=== PATIENT | female | born 1950 | race Hispanic/Latino ===

== ENCOUNTER 2020-12-05 11:24 | Outpatient (CLI) | payer MEDICARE | END 2020-12-05 11:25 | disposition home or self-care (01) | LOC: CSHWCC 11:24 | PROVIDERS: ATTEND Nurse Practitioner Family | DX: E11.621 Type 2 diabetes mellitus with foot ulcer (principal); L97.522 Non-pressure chronic ulcer of other part of left foot with fat layer exposed; E11.622 Type 2 diabetes mellitus with other skin ulcer; L97.812 Non-pressure chronic ulcer of other part of right lower leg with fat layer exposed; L97.822 Non-pressure chronic ulcer of other part of left lower leg with fat layer exposed; L97.922 Non-pressure chronic ulcer of unspecified part of left lower leg with fat layer exposed; R60.0 Localized edema; E78.2 Mixed hyperlipidemia; I11.0 Hypertensive heart disease with heart failure; I50.9 Heart failure, unspecified; I70.25 Atherosclerosis of native arteries of other extremities with ulceration; I87.2 Venous insufficiency (chronic) (peripheral); L24.9 Irritant contact dermatitis, unspecified cause; M20.42 Other hammer toe(s) (acquired), left foot | CPT/HCPCS: 29581; 99214; G0463 ==

== ENCOUNTER 2020-12-15 10:29 | Outpatient (CLI) | payer MEDICARE | END 2020-12-15 10:30 | disposition home or self-care (01) | LOC: CSHWCC 10:29 | PROVIDERS: ATTEND Nurse Practitioner Family | DX: I87.2 Venous insufficiency (chronic) (peripheral) (principal); E11.621 Type 2 diabetes mellitus with foot ulcer; E11.622 Type 2 diabetes mellitus with other skin ulcer; L97.522 Non-pressure chronic ulcer of other part of left foot with fat layer exposed; L97.812 Non-pressure chronic ulcer of other part of right lower leg with fat layer exposed; L97.822 Non-pressure chronic ulcer of other part of left lower leg with fat layer exposed; R60.0 Localized edema; E78.2 Mixed hyperlipidemia; I11.0 Hypertensive heart disease with heart failure; I50.9 Heart failure, unspecified; E11.69 Type 2 diabetes mellitus with other specified complication; I70.25 Atherosclerosis of native arteries of other extremities with ulceration; L24.9 Irritant contact dermatitis, unspecified cause; M20.42 Other hammer toe(s) (acquired), left foot | CPT/HCPCS: 29581; 99215; G0463 ==

== ENCOUNTER 2021-01-02 10:23 | Outpatient (CLI) | payer MEDICARE | END 2021-01-02 10:24 | disposition home or self-care (01) | LOC: CSHWCC 10:23 | PROVIDERS: ATTEND Nurse Practitioner Family | DX: E11.621 Type 2 diabetes mellitus with foot ulcer (principal); L97.522 Non-pressure chronic ulcer of other part of left foot with fat layer exposed; E11.622 Type 2 diabetes mellitus with other skin ulcer; L97.812 Non-pressure chronic ulcer of other part of right lower leg with fat layer exposed; L97.822 Non-pressure chronic ulcer of other part of left lower leg with fat layer exposed; L97.922 Non-pressure chronic ulcer of unspecified part of left lower leg with fat layer exposed; R60.0 Localized edema; E78.2 Mixed hyperlipidemia; I11.0 Hypertensive heart disease with heart failure; I50.9 Heart failure, unspecified; I70.25 Atherosclerosis of native arteries of other extremities with ulceration; I87.2 Venous insufficiency (chronic) (peripheral); L24.9 Irritant contact dermatitis, unspecified cause; M20.42 Other hammer toe(s) (acquired), left foot | CPT/HCPCS: 29581; 97139; G0463; 99214 ==

== ENCOUNTER 2021-01-16 12:30 | Outpatient (CLI) | payer MEDICARE | END 2021-01-16 12:31 | disposition home or self-care (01) | LOC: CSHWCC 12:30 | PROVIDERS: ATTEND Nurse Practitioner Family | DX: I87.2 Venous insufficiency (chronic) (peripheral) (principal); E11.621 Type 2 diabetes mellitus with foot ulcer; E11.622 Type 2 diabetes mellitus with other skin ulcer; L97.522 Non-pressure chronic ulcer of other part of left foot with fat layer exposed; L97.812 Non-pressure chronic ulcer of other part of right lower leg with fat layer exposed; L97.822 Non-pressure chronic ulcer of other part of left lower leg with fat layer exposed; R60.0 Localized edema; E78.2 Mixed hyperlipidemia; I11.0 Hypertensive heart disease with heart failure; I50.9 Heart failure, unspecified; E11.51 Type 2 diabetes mellitus with diabetic peripheral angiopathy without gangrene; I70.25 Atherosclerosis of native arteries of other extremities with ulceration; L24.9 Irritant contact dermatitis, unspecified cause; M20.42 Other hammer toe(s) (acquired), left foot | CPT/HCPCS: 29581; 97139; G0463; 99214 ==

== ENCOUNTER 2021-02-02 13:23 | Outpatient (CLI) | payer MEDICARE | END 2021-02-02 13:24 | disposition home or self-care (01) | LOC: CSHWCC 13:23 | PROVIDERS: ATTEND Nurse Practitioner Family | DX: I87.2 Venous insufficiency (chronic) (peripheral) (principal); E11.621 Type 2 diabetes mellitus with foot ulcer; E11.622 Type 2 diabetes mellitus with other skin ulcer; L97.522 Non-pressure chronic ulcer of other part of left foot with fat layer exposed; L97.812 Non-pressure chronic ulcer of other part of right lower leg with fat layer exposed; L97.822 Non-pressure chronic ulcer of other part of left lower leg with fat layer exposed; R60.0 Localized edema; E78.2 Mixed hyperlipidemia; I11.0 Hypertensive heart disease with heart failure; I50.9 Heart failure, unspecified; I70.25 Atherosclerosis of native arteries of other extremities with ulceration; E11.51 Type 2 diabetes mellitus with diabetic peripheral angiopathy without gangrene; L24.9 Irritant contact dermatitis, unspecified cause; M20.42 Other hammer toe(s) (acquired), left foot ==

== ENCOUNTER 2021-04-28 08:12 | Outpatient (CLI) | payer MEDICARE | END 2021-04-28 08:13 | disposition home or self-care (01) | LOC: CSHWCC 08:12 | PROVIDERS: ATTEND Nurse Practitioner Family | DX: I87.332 Chronic venous hypertension (idiopathic) with ulcer and inflammation of left lower extremity (principal); I87.2 Venous insufficiency (chronic) (peripheral); E11.621 Type 2 diabetes mellitus with foot ulcer; E11.622 Type 2 diabetes mellitus with other skin ulcer; L97.521 Non-pressure chronic ulcer of other part of left foot limited to breakdown of skin; L97.322 Non-pressure chronic ulcer of left ankle with fat layer exposed; E11.51 Type 2 diabetes mellitus with diabetic peripheral angiopathy without gangrene; E78.2 Mixed hyperlipidemia; I70.25 Atherosclerosis of native arteries of other extremities with ulceration; I11.0 Hypertensive heart disease with heart failure; I50.9 Heart failure, unspecified; L24.9 Irritant contact dermatitis, unspecified cause; L60.1 Onycholysis; M20.42 Other hammer toe(s) (acquired), left foot; R60.0 Localized edema | CPT/HCPCS: 29581; 99213; G0463 ==

== ENCOUNTER 2021-05-12 08:56 | Outpatient (CLI) | payer MEDICARE | END 2021-05-12 08:57 | disposition home or self-care (01) | LOC: CSHWCC 08:56 | PROVIDERS: ATTEND Nurse Practitioner Family | DX: I87.332 Chronic venous hypertension (idiopathic) with ulcer and inflammation of left lower extremity (principal); I87.2 Venous insufficiency (chronic) (peripheral); S91.105D Unspecified open wound of left lesser toe(s) without damage to nail, subsequent encounter; E11.51 Type 2 diabetes mellitus with diabetic peripheral angiopathy without gangrene; E11.622 Type 2 diabetes mellitus with other skin ulcer; I70.25 Atherosclerosis of native arteries of other extremities with ulceration; L97.322 Non-pressure chronic ulcer of left ankle with fat layer exposed; E78.2 Mixed hyperlipidemia; I11.0 Hypertensive heart disease with heart failure; I50.9 Heart failure, unspecified; L24.9 Irritant contact dermatitis, unspecified cause; L60.1 Onycholysis; M20.42 Other hammer toe(s) (acquired), left foot; R60.0 Localized edema | CPT/HCPCS: 29581; 99214; G0463 ==

== ENCOUNTER 2021-09-11 19:09 | Inpatient (IN) | payer MEDICARE ==
[2021-09-11] MEDS ORDERED: Heparin 5,000 UNITS/ML VIAL ONE (19:17)
[2021-09-11] MEDS ORDERED: Nitroglycerin 50 MG/250 ML BOT 0 ML ONE (19:18)
[2021-09-11] MEDS ORDERED: Lidocaine 1% PF 5 ML VIAL ONE (19:18)
[2021-09-11] MEDS ORDERED: Heparin 10,000 UNITS/ 10 ML VIAL ONE (19:18)
[2021-09-11] MEDS ORDERED: Adenosine 6 MG/2 ML VIAL ONE (19:19)
[2021-09-11] MEDS ORDERED: Sodium Chloride 0.9% 0 ML ONE (19:19)
[2021-09-11 19:43] LABS: #Basophils 0.1 10x3/uL (0.0-0.2); #Eosinphils 0.1 10x3/uL (0.0-0.5); #Monocytes 1.3 10x3/uL (0.0-1.1); %Basophils 0.8 % (0.0-2.0); %Eosinophils 0.9 % (0.0-6.0); %Lymphocytes 4.9 % (18.0-47.0); %Neutrophils 78.6 % (40.0-75.0); Hemoglobin 9.5 g/dL (12.0-15.5); Mean Corpuscular HGB CONC 30.5 g/dL (32.0-36.0); Mean Corpuscular Volume 88.4 fl (81.6-98.3); Platelet Count 263 10x3/uL (150-450); RBC Distribution Width 13.9 % (11.5-14.5); Red Blood Cell (RBC) Count 3.52 10x6/uL (3.90-5.03); White Blood Cell (WBC) Count 8.9 10x3/uL (3.5-10.5)
[2021-09-11 19:53] LABS: ALT (SGPT) 11 U/L (8-55); AST (SGOT) 20 U/L (5-34); Albumin 3.9 g/dL (3.4-4.8); Alkaline Phosphatase 102 U/L (40-110); Anion Gap 18 mmol/L (10-20); BUN (Urea Nitrogen) 29 mg/dL (9.8-20.1); Bilirubin, Total 0.3 mg/dL (0.2-1.2); Calc. Creatinine Clearance 0 mL/min (70-130); Calcium 9.1 mg/dL (7.8-10.44); Carbon Dioxide 20 mmol/L (23-31); Chloride 101 mmol/L (98-107); Globulin 4.9 g/dL (2.4-3.5); Glucose 300 mg/dL (80-115); Potassium 4.2 mmol/L (3.5-5.1); Protein, Total 8.8 g/dL (5.8-8.1); Sodium 135 mmol/L (136-145)
[2021-09-11 20:15] LABS: Actual Bicarbonate (HCO3a) 24.8 mEq/L (22-28); Base Excess (BEa) 0.3 mEq/L (-2.0 to +3.0); CO2 Tension 39.4 mmHg (35.0-45.0); Calcium, Ionized (arterial) 1.11 mmol/L (1.12-1.30); Carboxyhemoglobin (COHb) 0.6 gm% (0.0-3.0); Hemoglobin (Hb) 10.3 g/dL (12.0-16.0); O2 Tension (PaO2), arterial 70.4 mmHg (> 80.0); Potassium - ABG Lab 3.9 mmol/L (3.70-5.30); Puncture Site RRA; pH, Arterial 7.42 (7.35-7.45)
[2021-09-11 20:31] LABS: SARS-CoV-2 NAA Rapid Test DETECTED (NotDetected)
[2021-09-11] MEDS ORDERED: Ondansetron PF 4 MG/2 ML Vial IVP PRN (22:02)
[2021-09-11] MEDS ORDERED: Dextrose 50% Abboject 50 ML SYRINGE SLOW IVP PRN (22:02)
[2021-09-11] MEDS ORDERED: Dextrose 5% in Water 1,000 ML IV PRN (22:02)
[2021-09-11] MEDS ORDERED: Calcium Carbonate 500 MG ChewTAB PO PRN (22:02)
[2021-09-11] MEDS ORDERED: Senokot S 8.6-50 MG TAB PO PRN (22:02)
[2021-09-11] MEDS ORDERED: Guaifenesin DM 100-10/5 ML UDCUP PO PRN (22:02)
[2021-09-11] MEDS ORDERED: Labetalol HCl 100 MG/20 ML VIAL SLOW IVP PRN (22:05)
[2021-09-11] MEDS ORDERED: Ventolin HFA Inhaler 60 PUFF INHALER INH PRN (22:06)
[2021-09-11] MEDS ORDERED: Nitroglycerin 0.4 MG TAB (25 Tab Bottle) SL PRN (22:09)
[2021-09-11] MEDS ORDERED: Furosemide 100 MG/10 ML VIAL ONE (22:14)
[2021-09-11] MEDS ORDERED: Nitroglycerin 2% Ointment 1 INCH/1 GM Packet ONE (22:14)
[2021-09-11] MEDS ORDERED: cloNIDine 0.1 MG TAB PO SCH (22:15)
[2021-09-11] MEDS ORDERED: REMDESIVIR REQUEST IVPB PRN (22:25)
[2021-09-11] MEDS ORDERED: Dexamethasone 4 mg/ml Vial SLOW IVP SCH (22:30)
[2021-09-12 00:27] LABS: CKMB 3.4 ng/mL (0-6.6)
[2021-09-12] MEDS ORDERED: cloNIDine 0.1 MG TAB ONE (01:08)
[2021-09-12] MEDS ORDERED: Dexamethasone 10 MG/ML VIAL ONE (01:37)
[2021-09-12] MEDS ORDERED: HYDROcodone/Acetaminophen 5/325 mg Tablet ONE (01:48)
[2021-09-12 05:05] LABS: #Basophils 0.1 10x3/uL (0.0-0.2); #Monocytes 0.3 10x3/uL (0.0-1.1); %Basophils 0.7 % (0.0-2.0); %Eosinophils 0.3 % (0.0-6.0); %Lymphocytes 6.3 % (18.0-47.0); %Monocytes 4.5 % (0.0-10.0); %Neutrophils 87.8 % (40.0-75.0); Hemoglobin 10.2 g/dL (12.0-15.5); Mean Corpuscular HGB CONC 30.6 g/dL (32.0-36.0); Mean Corpuscular Hemoglobin 26.8 pg (27.0-33.0); Mean Corpuscular Volume 87.4 fl (81.6-98.3); Mean Platelet Volume 11.6 fl (7.4-10.4); Platelet Count 212 10x3/uL (150-450); Red Blood Cell (RBC) Count 3.81 10x6/uL (3.90-5.03); White Blood Cell (WBC) Count 6.8 10x3/uL (3.5-10.5)
[2021-09-12 05:21] LABS: ALT (SGPT) 13 U/L (8-55); AST (SGOT) 23 U/L (5-34); Albumin 3.7 g/dL (3.4-4.8); Alkaline Phosphatase 99 U/L (40-110); Anion Gap 18 mmol/L (10-20); BUN (Urea Nitrogen) 32 mg/dL (9.8-20.1); Bilirubin, Total 0.4 mg/dL (0.2-1.2); CRP (Inflammatory) 0.69 mg/dL (= or < 0.5); Calc. Creatinine Clearance 0 mL/min (70-130); Calcium 8.6 mg/dL (7.8-10.44); Carbon Dioxide 22 mmol/L (23-31); Chloride 101 mmol/L (98-107); Globulin 4.6 g/dL (2.4-3.5); Glucose 302 mg/dL (80-115); Potassium 4.5 mmol/L (3.5-5.1); Protein, Total 8.3 g/dL (5.8-8.1); Sodium 136 mmol/L (136-145)
[2021-09-12 05:53] LABS: CKMB 3.6 ng/mL (0-6.6)
[2021-09-12] MEDS ORDERED: Furosemide 40 MG/4 ML VIAL ONE (05:58)
[2021-09-12] MEDS ORDERED: Carvedilol 12.5 MG TAB PO SCH (08:00)
[2021-09-12 08:51] LABS: CKMB 3.8 ng/mL (0-6.6)
[2021-09-12 08:58] VITALS: BMI 39.9
[2021-09-12] MEDS ORDERED: REMDESIVIR 200 MG in Sodium Chloride 0.9% 250 ML 210 ML IV SCH (09:00)
[2021-09-12] MEDS ORDERED: Losartan Potassium 50 MG TAB PO SCH (09:00)
[2021-09-12] MEDS ORDERED: Nitroglycerin 2% Ointment 1 INCH/1 GM Packet TOP SCH (09:00)
[2021-09-12] MEDS: Furosemide 40 MG/4 ML VIAL SLOW IVP SCH ×2 (11:16→12:32)
[2021-09-12] MEDS: Ascorbic Acid 500 mg Chewable Tablet PO SCH (12:17)
[2021-09-12] MEDS: Enoxaparin Sodium 40 MG/0.4 ML SYRINGE SC SCH (12:18)
[2021-09-12] MEDS: Benzonatate 100 MG CAP PO SCH ×4 (12:18→20:22)
[2021-09-12] MEDS: Lantus 1000 UNITS/10 ML VIAL SC SCH ×2 (12:18→21:48)
[2021-09-12] MEDS: Clopidogrel Bisulfate 75 MG TAB PO SCH (12:18)
[2021-09-12] MEDS: Acetaminophen 325 MG TAB PO PRN (12:25)
[2021-09-12] MEDS: Magnesium Oxide 400 MG TAB PO SCH (12:27)
[2021-09-12] MEDS: Spironolactone 25 MG TAB PO SCH (12:30)
[2021-09-12] MEDS: Zinc Gluconate 50 MG TAB PO SCH (12:31)
[2021-09-12] MEDS: HumaLOG 300 UNITS/3 ML VIAL SC PRN ×3 (12:32→21:49)
[2021-09-12 14:14] LABS: Hemoglobin A1c 9.6 % (4.0-6.0)
[2021-09-12] MEDS ORDERED: Carvedilol 6.25 MG TAB PO SCH (17:00)
[2021-09-12] MEDS ORDERED: Aspirin 81 mg Enteric Coated Tablet PO SCH (18:45)
[2021-09-12] MEDS ORDERED: Valsartan 80 MG TAB PO SCH (20:00)
[2021-09-12] MEDS: Dexamethasone 4 mg/ml Vial SLOW IVP SCH (20:21)
[2021-09-12] MEDS: traZODone HCl 50 MG TAB PO SCH (20:22)
[2021-09-12] MEDS: Atorvastatin Calcium 40 MG TAB PO SCH (20:22)
[2021-09-12] MEDS: Montelukast Sodium 10 mg Tablet PO SCH (20:22)
[2021-09-12] MEDS: Cholecalciferol 1,000 UNITS (25 MCG) TAB PO SCH (20:27)
[2021-09-12] MEDS ORDERED: Atorvastatin Calcium 40 MG TAB PO SCH (21:00)
[2021-09-12] MEDS ORDERED: Nystatin Powder 15 GM BOT TOP PRN (21:06)
[2021-09-13] MEDS: ALPRAZolam 0.25 MG TAB PO PRN ×2 (01:45→20:16)
[2021-09-13] MEDS: HYDROcodone/Acetaminophen 5/325 mg Tablet PO PRN (01:48)
[2021-09-13 05:35] LABS: #Monocytes 0.4 10x3/uL (0.0-1.1); #Neutrophils 3.8 10x3/uL (1.5-8.4); %Basophils 0.2 % (0.0-2.0); %Lymphocytes 12.7 % (18.0-47.0); %Monocytes 7.7 % (0.0-10.0); Hemoglobin 9.9 g/dL (12.0-15.5); Mean Corpuscular HGB CONC 29.6 g/dL (32.0-36.0); Mean Corpuscular Hemoglobin 26.3 pg (27.0-33.0); Mean Corpuscular Volume 88.6 fl (81.6-98.3); Mean Platelet Volume 10.9 fl (7.4-10.4); Platelet Count 277 10x3/uL (150-450); RBC Distribution Width 13.7 % (11.5-14.5); Red Blood Cell (RBC) Count 3.77 10x6/uL (3.90-5.03); White Blood Cell (WBC) Count 4.8 10x3/uL (3.5-10.5)
[2021-09-13 05:44] LABS: ALT (SGPT) 12 U/L (8-55); AST (SGOT) 21 U/L (5-34); Albumin 3.7 g/dL (3.4-4.8); Alkaline Phosphatase 94 U/L (40-110); Anion Gap 16 mmol/L (10-20); BUN (Urea Nitrogen) 49 mg/dL (9.8-20.1); Bilirubin, Total 0.3 mg/dL (0.2-1.2); Calc. Creatinine Clearance 56 mL/min (70-130); Calcium 9.2 mg/dL (7.8-10.44); Carbon Dioxide 28 mmol/L (23-31); Chloride 99 mmol/L (98-107); Glucose 452 mg/dL (80-115); Magnesium 1.7 mg/dL (1.6-2.6); Phosphorus 3.8 mg/dL (2.3-4.7); Potassium 4.6 mmol/L (3.5-5.1); Protein, Total 8.7 g/dL (5.8-8.1); Sodium 138 mmol/L (136-145)
[2021-09-13] MEDS: Furosemide 40 MG/4 ML VIAL SLOW IVP SCH ×2 (06:16→17:41)
[2021-09-13 06:20] LABS: Platelet Morphology Comment Appears Adequate
[2021-09-13 06:21] LABS: Hypochromia SLIGHT = 6-15 cells (100X) (0-5/hpf)
[2021-09-13] MEDS: HumaLOG 300 UNITS/3 ML VIAL SC PRN ×2 (06:37→11:37)
[2021-09-13] MEDS: Enoxaparin Sodium 40 MG/0.4 ML SYRINGE SC SCH (08:11)
[2021-09-13] MEDS: Benzonatate 100 MG CAP PO SCH ×3 (08:11→20:15)
[2021-09-13] MEDS: Ascorbic Acid 500 mg Chewable Tablet PO SCH (08:12)
[2021-09-13] MEDS: Zinc Gluconate 50 MG TAB PO SCH (08:12)
[2021-09-13] MEDS: Carvedilol 25 MG TAB PO SCH ×2 (08:13→16:46)
[2021-09-13] MEDS: Clopidogrel Bisulfate 75 MG TAB PO SCH (08:14)
[2021-09-13] MEDS: Spironolactone 25 MG TAB PO SCH (08:14)
[2021-09-13] MEDS: Magnesium Oxide 400 MG TAB PO SCH (08:15)
[2021-09-13] MEDS: Aspirin 81 mg Enteric Coated Tablet PO SCH (08:15)
[2021-09-13] MEDS: Lantus 1000 UNITS/10 ML VIAL SC SCH ×2 (08:16→20:19)
[2021-09-13] MEDS: Valsartan 80 MG TAB PO SCH (08:19)
[2021-09-13] MEDS: REMDESIVIR 100 MG in Sodium Chloride 0.9% 250 ML 230 ML IV SCH (09:19)
[2021-09-13] MEDS ORDERED: Cepastat Lozenges 1 LOZ PO PRN (12:34)
[2021-09-13] MEDS ORDERED: Dextrose 5% in Water 1,000 ML IV PRN (15:38)
[2021-09-13] MEDS ORDERED: Dextrose 50% Abboject 50 ML SYRINGE SLOW IVP PRN (15:38)
[2021-09-13] MEDS: HumaLOG 300 UNITS/3 ML VIAL SC SCH (16:46)
[2021-09-13 17:56] LABS: Bilirubin Neg (Negative); Blood, Urine Negative (Negative); Clarity Clear (Clear); Glucose, Urine (Dipstick) 250 mg/dL (Negative); Ketone, Urine Negative (Negative); Leukocyte Negative (Negative); Nitrite Negative (Negative); Protein, Urine (Dipstick) 30 mg/dl (Neg-Trace); Specific Gravity, Urine 1.015 (1.002-1.036); Urobilinogen Normal mg/dL (Less than 2)
[2021-09-13 18:15] LABS: Urine Culture Reflex No No
[2021-09-13 18:16] LABS: Bacteria/HPF Rare-Few HPF (None Seen); RBC/HPF 0-3 HPF (0-3); Squamous Epithelial 0-3 HPF (0-3); Transitional Epithelial 0-3 HPF (None Seen); WBC/HPF 0-3 HPF (0-3)
[2021-09-13] MEDS: Cholecalciferol 1,000 UNITS (25 MCG) TAB PO SCH (20:15)
[2021-09-13] MEDS: Montelukast Sodium 10 mg Tablet PO SCH (20:16)
[2021-09-13] MEDS: traZODone HCl 50 MG TAB PO SCH (20:16)
[2021-09-13] MEDS: Atorvastatin Calcium 40 MG TAB PO SCH (20:16)
[2021-09-13] MEDS: Dexamethasone 4 mg/ml Vial SLOW IVP SCH (20:17)
[2021-09-14 06:13] LABS: ALT (SGPT) 12 U/L (8-55); AST (SGOT) 21 U/L (5-34); Albumin 3.7 g/dL (3.4-4.8); Alkaline Phosphatase 86 U/L (40-110); Anion Gap 17 mmol/L (10-20); BUN (Urea Nitrogen) 74 mg/dL (9.8-20.1); Bilirubin, Total 0.2 mg/dL (0.2-1.2); Calc. Creatinine Clearance 50 mL/min (70-130); Calcium 8.8 mg/dL (7.8-10.44); Carbon Dioxide 23 mmol/L (23-31); Chloride 98 mmol/L (98-107); Globulin 4.7 g/dL (2.4-3.5); Glucose 268 mg/dL (80-115); Magnesium 1.7 mg/dL (1.6-2.6); Phosphorus 4.7 mg/dL (2.3-4.7); Potassium 4.7 mmol/L (3.5-5.1); Protein, Total 8.4 g/dL (5.8-8.1); Sodium 133 mmol/L (136-145)
[2021-09-14] MEDS: HYDROcodone/Acetaminophen 5/325 mg Tablet PO PRN ×2 (06:51→17:09)
[2021-09-14 07:08] LABS: #Monocytes 0.2 10x3/uL (0.0-1.1); #Neutrophils 5.6 10x3/uL (1.5-8.4); %Basophils 0.1 % (0.0-2.0); %Lymphocytes 11.4 % (18.0-47.0); %Monocytes 3.6 % (0.0-10.0); %Neutrophils 84.6 % (40.0-75.0); Mean Corpuscular HGB CONC 29.9 g/dL (32.0-36.0); Mean Corpuscular Hemoglobin 26.5 pg (27.0-33.0); Mean Corpuscular Volume 88.9 fl (81.6-98.3); Mean Platelet Volume 11.3 fl (7.4-10.4); Platelet Count 265 10x3/uL (150-450); RBC Distribution Width 13.9 % (11.5-14.5); Red Blood Cell (RBC) Count 3.77 10x6/uL (3.90-5.03); White Blood Cell (WBC) Count 6.7 10x3/uL (3.5-10.5)
[2021-09-14] MEDS: Lantus 1000 UNITS/10 ML VIAL SC SCH ×2 (07:44→21:09)
[2021-09-14] MEDS: Enoxaparin Sodium 40 MG/0.4 ML SYRINGE SC SCH (07:45)
[2021-09-14] MEDS: Spironolactone 25 MG TAB PO SCH (07:46)
[2021-09-14] MEDS: Magnesium Oxide 400 MG TAB PO SCH (08:05)
[2021-09-14] MEDS: Zinc Gluconate 50 MG TAB PO SCH (08:06)
[2021-09-14] MEDS: Aspirin 81 mg Enteric Coated Tablet PO SCH (08:06)
[2021-09-14] MEDS: Clopidogrel Bisulfate 75 MG TAB PO SCH (08:06)
[2021-09-14] MEDS: Benzonatate 100 MG CAP PO SCH ×3 (08:07→21:08)
[2021-09-14] MEDS: Ascorbic Acid 500 mg Chewable Tablet PO SCH (08:07)
[2021-09-14] MEDS: Valsartan 80 MG TAB PO SCH (08:08)
[2021-09-14] MEDS: Carvedilol 25 MG TAB PO SCH ×2 (08:08→17:09)
[2021-09-14] MEDS: HumaLOG 300 UNITS/3 ML VIAL SC SCH ×3 (08:09→17:09)
[2021-09-14] MEDS: Furosemide 40 MG/4 ML VIAL SLOW IVP SCH (08:09)
[2021-09-14] MEDS: REMDESIVIR 100 MG in Sodium Chloride 0.9% 250 ML 230 ML IV SCH (08:36)
[2021-09-14] MEDS: Montelukast Sodium 10 mg Tablet PO SCH (21:08)
[2021-09-14] MEDS: Dexamethasone 4 mg/ml Vial SLOW IVP SCH (21:08)
[2021-09-14] MEDS: Cholecalciferol 1,000 UNITS (25 MCG) TAB PO SCH (21:09)
[2021-09-14] MEDS: traZODone HCl 50 MG TAB PO SCH (21:09)
[2021-09-14] MEDS: Atorvastatin Calcium 40 MG TAB PO SCH (21:10)
[2021-09-14] MEDS: ALPRAZolam 0.25 MG TAB PO PRN (21:31)
[2021-09-15 06:40] LABS: ALT (SGPT) 15 U/L (8-55); AST (SGOT) 25 U/L (5-34); Albumin 3.8 g/dL (3.4-4.8); Alkaline Phosphatase 78 U/L (40-110); Anion Gap 18 mmol/L (10-20); BUN (Urea Nitrogen) 87 mg/dL (9.8-20.1); Bilirubin, Total 0.3 mg/dL (0.2-1.2); Calc. Creatinine Clearance 48 mL/min (70-130); Calcium 8.9 mg/dL (7.8-10.44); Carbon Dioxide 21 mmol/L (23-31); Chloride 102 mmol/L (98-107); Globulin 4.7 g/dL (2.4-3.5); Glucose 167 mg/dL (80-115); Magnesium 1.8 mg/dL (1.6-2.6); Phosphorus 4.8 mg/dL (2.3-4.7); Potassium 4.8 mmol/L (3.5-5.1); Protein, Total 8.5 g/dL (5.8-8.1); Sodium 136 mmol/L (136-145)
[2021-09-15 07:03] LABS: #Monocytes 0.2 10x3/uL (0.0-1.1); #Neutrophils 5.8 10x3/uL (1.5-8.4); %Basophils 0.1 % (0.0-2.0); %Lymphocytes 12.2 % (18.0-47.0); %Monocytes 2.6 % (0.0-10.0); %Neutrophils 84.8 % (40.0-75.0); Hemoglobin 10.6 g/dL (12.0-15.5); Mean Corpuscular HGB CONC 30.6 g/dL (32.0-36.0); Mean Corpuscular Hemoglobin 26.8 pg (27.0-33.0); Mean Corpuscular Volume 87.4 fl (81.6-98.3); Mean Platelet Volume 10.9 fl (7.4-10.4); Platelet Count 251 10x3/uL (150-450); RBC Distribution Width 13.8 % (11.5-14.5); Red Blood Cell (RBC) Count 3.96 10x6/uL (3.90-5.03); White Blood Cell (WBC) Count 6.9 10x3/uL (3.5-10.5)
[2021-09-15] MEDS: HumaLOG 300 UNITS/3 ML VIAL SC SCH ×3 (08:31→16:47)
[2021-09-15] MEDS: Furosemide 40 MG/4 ML VIAL SLOW IVP SCH (08:32)
[2021-09-15] MEDS: Benzonatate 100 MG CAP PO SCH ×3 (08:33→20:22)
[2021-09-15] MEDS: Spironolactone 25 MG TAB PO SCH (08:33)
[2021-09-15] MEDS: Zinc Gluconate 50 MG TAB PO SCH (08:33)
[2021-09-15] MEDS: Ascorbic Acid 500 mg Chewable Tablet PO SCH (08:33)
[2021-09-15] MEDS: Clopidogrel Bisulfate 75 MG TAB PO SCH (08:33)
[2021-09-15] MEDS: Aspirin 81 mg Enteric Coated Tablet PO SCH (08:33)
[2021-09-15] MEDS: Enoxaparin Sodium 40 MG/0.4 ML SYRINGE SC SCH (08:34)
[2021-09-15] MEDS: Carvedilol 25 MG TAB PO SCH ×2 (08:34→16:46)
[2021-09-15] MEDS: Magnesium Oxide 400 MG TAB PO SCH (08:34)
[2021-09-15] MEDS: Lantus 1000 UNITS/10 ML VIAL SC SCH ×2 (08:35→23:36)
[2021-09-15] MEDS: Valsartan 80 MG TAB PO SCH (08:38)
[2021-09-15] MEDS: REMDESIVIR 100 MG in Sodium Chloride 0.9% 250 ML 230 ML IV SCH (12:52)
[2021-09-15] MEDS: Acetaminophen 325 MG TAB PO PRN (16:57)
[2021-09-15] MEDS: HYDROcodone/Acetaminophen 5/325 mg Tablet PO PRN (17:17)
[2021-09-15] MEDS: Atorvastatin Calcium 40 MG TAB PO SCH (20:22)
[2021-09-15] MEDS: ALPRAZolam 0.25 MG TAB PO PRN (20:23)
[2021-09-15] MEDS: Montelukast Sodium 10 mg Tablet PO SCH (20:23)
[2021-09-15] MEDS: Cholecalciferol 1,000 UNITS (25 MCG) TAB PO SCH (20:23)
[2021-09-15] MEDS: Dexamethasone 4 mg/ml Vial SLOW IVP SCH (20:23)
[2021-09-15] MEDS: traZODone HCl 50 MG TAB PO SCH (20:23)
[2021-09-15] MEDS: HumaLOG 300 UNITS/3 ML VIAL SC PRN (20:55)
[2021-09-16] MEDS: HumaLOG 300 UNITS/3 ML VIAL SC PRN (05:37)
[2021-09-16 06:03] LABS: Creatinine, Urine 49.1 mg/dL (47-110); Microalbumin/Creat Ratio 40.7 mg/g (Less than 30)
[2021-09-16 06:43] LABS: #Monocytes 0.1 10x3/uL (0.0-1.1); #Neutrophils 6.7 10x3/uL (1.5-8.4); %Lymphocytes 9.4 % (18.0-47.0); %Monocytes 1.9 % (0.0-10.0); %Neutrophils 88.3 % (40.0-75.0); Mean Corpuscular HGB CONC 30.6 g/dL (32.0-36.0); Mean Corpuscular Hemoglobin 26.2 pg (27.0-33.0); Mean Corpuscular Volume 85.8 fl (81.6-98.3); Mean Platelet Volume 11.3 fl (7.4-10.4); Platelet Count 233 10x3/uL (150-450); RBC Distribution Width 13.9 % (11.5-14.5); Red Blood Cell (RBC) Count 3.81 10x6/uL (3.90-5.03); White Blood Cell (WBC) Count 7.6 10x3/uL (3.5-10.5)
[2021-09-16 06:44] LABS: ALT (SGPT) 15 U/L (8-55); AST (SGOT) 19 U/L (5-34); Albumin 3.7 g/dL (3.4-4.8); Alkaline Phosphatase 81 U/L (40-110); Anion Gap 18 mmol/L (10-20); BUN (Urea Nitrogen) 100 mg/dL (9.8-20.1); Bilirubin, Total 0.2 mg/dL (0.2-1.2); Calc. Creatinine Clearance 47 mL/min (70-130); Calcium 8.6 mg/dL (7.8-10.44); Carbon Dioxide 20 mmol/L (23-31); Chloride 100 mmol/L (98-107); Globulin 4.5 g/dL (2.4-3.5); Glucose 221 mg/dL (80-115); Magnesium 1.8 mg/dL (1.6-2.6); Phosphorus 4.2 mg/dL (2.3-4.7); Potassium 4.3 mmol/L (3.5-5.1); Protein, Total 8.2 g/dL (5.8-8.1); Sodium 134 mmol/L (136-145)
[2021-09-16] MEDS: Zinc Gluconate 50 MG TAB PO SCH (08:43)
[2021-09-16] MEDS: Enoxaparin Sodium 40 MG/0.4 ML SYRINGE SC SCH (08:43)
[2021-09-16] MEDS: Carvedilol 25 MG TAB PO SCH ×2 (08:44→17:41)
[2021-09-16] MEDS: Aspirin 81 mg Enteric Coated Tablet PO SCH (08:44)
[2021-09-16] MEDS: Spironolactone 25 MG TAB PO SCH (08:44)
[2021-09-16] MEDS: Benzonatate 100 MG CAP PO SCH ×2 (08:44→17:41)
[2021-09-16] MEDS: Magnesium Oxide 400 MG TAB PO SCH (08:44)
[2021-09-16] MEDS: Lantus 1000 UNITS/10 ML VIAL SC SCH (08:44)
[2021-09-16] MEDS: Ascorbic Acid 500 mg Chewable Tablet PO SCH (08:44)
[2021-09-16] MEDS: Clopidogrel Bisulfate 75 MG TAB PO SCH (08:44)
[2021-09-16] MEDS: HumaLOG 300 UNITS/3 ML VIAL SC SCH ×3 (08:47→17:39)
[2021-09-16] MEDS: Valsartan 80 MG TAB PO SCH (08:50)
[2021-09-16] MEDS: REMDESIVIR 100 MG in Sodium Chloride 0.9% 250 ML 230 ML IV SCH (12:21)
[2021-09-16] MEDS: HYDROcodone/Acetaminophen 5/325 mg Tablet PO PRN (12:22)
[2021-09-16 18:36] VITALS: BP 140/74; TEMP 98.1
== END 2021-09-16 19:10 | disposition home or self-care (01) | DRG 177 ==
LOC: SUATTDRO 19:09 → CSHERS 19:09 → UNDOADMIN 09-12 08:50 → CSHNSY 09-12 08:50 → CSHICU 09-12 08:56 → UNDOADMIN 09-12 17:48 → CSHTELE 09-12 17:48 → CSHICU 09-12 17:48 → CSHTELE 09-12 18:21
PROVIDERS: ADMIT Internal Medicine; ATTEND Family Medicine
PROC: 3E0333Z Introduction of Anti-inflammatory into Peripheral Vein, Percutaneous Approach (ICD-10-PCS; 2021-09-11)
PROC: 8E0ZXY6 Isolation (ICD-10-PCS; principal; 2021-09-12)
PROC: XW033E5 Introduction of Remdesivir Anti-infective into Peripheral Vein, Percutaneous Approach, New Technology Group 5 (ICD-10-PCS; 2021-09-12)
DX: U07.1 COVID-19 (principal); J96.01 Acute respiratory failure with hypoxia; I21.A1 Myocardial infarction type 2; J12.82 Pneumonia due to coronavirus disease 2019; I50.43 Acute on chronic combined systolic (congestive) and diastolic (congestive) heart failure; N17.9 Acute kidney failure, unspecified; I16.1 Hypertensive emergency; I13.0 Hypertensive heart and chronic kidney disease with heart failure and stage 1 through stage 4 chronic kidney disease, or unspecified chronic kidney disease; E66.2 Morbid (severe) obesity with alveolar hypoventilation; R80.9 Proteinuria, unspecified; I25.10 Atherosclerotic heart disease of native coronary artery without angina pectoris; E11.51 Type 2 diabetes mellitus with diabetic peripheral angiopathy without gangrene; F41.9 Anxiety disorder, unspecified; E11.621 Type 2 diabetes mellitus with foot ulcer; I25.5 Ischemic cardiomyopathy; F32.A Depression, unspecified; E11.22 Type 2 diabetes mellitus with diabetic chronic kidney disease; E78.2 Mixed hyperlipidemia; N18.32 Chronic kidney disease, stage 3b; G89.29 Other chronic pain; M54.50 Low back pain, unspecified; D63.1 Anemia in chronic kidney disease; E11.42 Type 2 diabetes mellitus with diabetic polyneuropathy; L97.529 Non-pressure chronic ulcer of other part of left foot with unspecified severity; Z95.1 Presence of aortocoronary bypass graft; Z95.810 Presence of automatic (implantable) cardiac defibrillator; Z88.1 Allergy status to other antibiotic agents; Z79.4 Long term (current) use of insulin; Z88.8 Allergy status to other drugs, medicaments and biological substances; Z91.040 Latex allergy status; Z91.048 Other nonmedicinal substance allergy status; Z79.82 Long term (current) use of aspirin; Z79.02 Long term (current) use of antithrombotics/antiplatelets; Z79.891 Long term (current) use of opiate analgesic; Z79.899 Other long term (current) drug therapy; Z87.891 Personal history of nicotine dependence; Z90.710 Acquired absence of both cervix and uterus; Z90.49 Acquired absence of other specified parts of digestive tract; Z90.722 Acquired absence of ovaries, bilateral; Z89.429 Acquired absence of other toe(s), unspecified side
CPT/HCPCS: 0240U; 36415; 36416; 36600; 71045; 76770; 80053; 81001; 82043; 82553; 82805; 83036; 83735; 83880; 84100; 84443; 84484; 85025; 85379; 86140; 86850; 86900; 86901; 93005; 93970; 94760; J0153; J1100; J1644; J1650; J1815; J1940; J7050

== ENCOUNTER 2021-09-19 20:47 | Emergency (ER) | payer MEDICARE ==
[2021-09-19 21:28] LABS: #Basophils 0.1 10x3/uL (0.0-0.2); #Eosinphils 0.4 10x3/uL (0.0-0.5); #Monocytes 1.1 10x3/uL (0.0-1.1); #Neutrophils 8.5 10x3/uL (1.5-8.4); %Basophils 0.4 % (0.0-2.0); %Eosinophils 3.2 % (0.0-6.0); %Lymphocytes 12.5 % (18.0-47.0); %Monocytes 9.6 % (0.0-10.0); %Neutrophils 73.6 % (40.0-75.0); Hemoglobin 10.3 g/dL (12.0-15.5); Mean Corpuscular HGB CONC 30.4 g/dL (32.0-36.0); Mean Corpuscular Hemoglobin 26.5 pg (27.0-33.0); Mean Corpuscular Volume 87.4 fl (81.6-98.3); Mean Platelet Volume 11.4 fl (7.4-10.4); Platelet Count 222 10x3/uL (150-450); RBC Distribution Width 14.2 % (11.5-14.5); Red Blood Cell (RBC) Count 3.88 10x6/uL (3.90-5.03); White Blood Cell (WBC) Count 11.6 10x3/uL (3.5-10.5)
[2021-09-19 21:46] LABS: ALT (SGPT) 13 U/L (8-55); AST (SGOT) 14 U/L (5-34); Albumin 3.7 g/dL (3.4-4.8); Alkaline Phosphatase 90 U/L (40-110); Anion Gap 14 mmol/L (10-20); BUN (Urea Nitrogen) 27 mg/dL (9.8-20.1); Bilirubin, Total 0.3 mg/dL (0.2-1.2); Calc. Creatinine Clearance 0 mL/min (70-130); Calcium 8.3 mg/dL (7.8-10.44); Carbon Dioxide 22 mmol/L (23-31); Chloride 107 mmol/L (98-107); Globulin 3.8 g/dL (2.4-3.5); Glucose 225 mg/dL (80-115); Protein, Total 7.5 g/dL (5.8-8.1); Sodium 139 mmol/L (136-145)
[2021-09-19 22:13] LABS: CKMB 4.2 ng/mL (0-6.6)
== END 2021-09-19 23:43 | disposition home or self-care (01) ==
LOC: CSHERS 20:47
DX: U07.1 COVID-19 (principal); E11.9 Type 2 diabetes mellitus without complications; I11.0 Hypertensive heart disease with heart failure; I50.9 Heart failure, unspecified
CPT/HCPCS: 71045; 80053; 82553; 84484; 85025; 93005

== ENCOUNTER 2021-11-08 10:44 | Outpatient (CLI) | payer MEDICARE | END 2021-11-08 10:45 | disposition home or self-care (01) | LOC: CSHWCC 10:44 | PROVIDERS: ATTEND Nurse Practitioner Family | DX: I87.332 Chronic venous hypertension (idiopathic) with ulcer and inflammation of left lower extremity (principal); L97.822 Non-pressure chronic ulcer of other part of left lower leg with fat layer exposed; E11.621 Type 2 diabetes mellitus with foot ulcer; L97.522 Non-pressure chronic ulcer of other part of left foot with fat layer exposed | CPT/HCPCS: 29581; 87070; 87077; 87186; 87205; 99214; G0463 ==

== ENCOUNTER 2021-12-20 11:08 | Outpatient (CLI) | payer MEDICARE | END 2021-12-20 11:09 | disposition home or self-care (01) | LOC: CSHWCC 11:08 | PROVIDERS: ATTEND Nurse Practitioner Family | DX: I87.332 Chronic venous hypertension (idiopathic) with ulcer and inflammation of left lower extremity (principal); E11.621 Type 2 diabetes mellitus with foot ulcer; E11.622 Type 2 diabetes mellitus with other skin ulcer; L97.822 Non-pressure chronic ulcer of other part of left lower leg with fat layer exposed; L97.522 Non-pressure chronic ulcer of other part of left foot with fat layer exposed; S91.105D Unspecified open wound of left lesser toe(s) without damage to nail, subsequent encounter; R60.0 Localized edema | CPT/HCPCS: 11042; 11045; 99213; G0463 ==

== ENCOUNTER 2022-01-08 10:55 | Observation (INO) | payer MEDICARE ==
[2022-01-08 11:46] LABS: #Basophils 0.1 10x3/uL (0.0-0.2); #Eosinphils 0.4 10x3/uL (0.0-0.5); #Monocytes 0.7 10x3/uL (0.0-1.1); %Basophils 1.3 % (0.0-2.0); %Eosinophils 4.4 % (0.0-6.0); %Lymphocytes 10.3 % (18.0-47.0); %Monocytes 7.9 % (0.0-10.0); %Neutrophils 75.8 % (40.0-75.0); Hemoglobin 8.7 g/dL (12.0-15.5); Mean Corpuscular HGB CONC 28.8 g/dL (32.0-36.0); Mean Corpuscular Hemoglobin 22.3 pg (27.0-33.0); Mean Corpuscular Volume 77.4 fl (81.6-98.3); Mean Platelet Volume 11.7 fl (7.4-10.4); Platelet Count 310 10x3/uL (150-450); White Blood Cell (WBC) Count 9.2 10x3/uL (3.5-10.5)
[2022-01-08 11:52] LABS: INR-International Normal Ratio 1.1; PTT 26.5 sec (22.0-33.0); Prothrombin Time 11.6 sec (9.5-12.1)
[2022-01-08 11:56] LABS: ALT (SGPT) 17 U/L (8-55); AST (SGOT) 31 U/L (5-34); Albumin 3.5 g/dL (3.4-4.8); Alkaline Phosphatase 81 U/L (40-110); Anion Gap 17 mmol/L (10-20); BUN (Urea Nitrogen) 38 mg/dL (9.8-20.1); Bilirubin, Total 0.5 mg/dL (0.2-1.2); CK (CPK) 76 U/L (29-168); Calc. Creatinine Clearance 0 mL/min (70-130); Calcium 9.1 mg/dL (7.8-10.44); Carbon Dioxide 24 mmol/L (23-31); Chloride 102 mmol/L (98-107); Globulin 4.7 g/dL (2.4-3.5); Glucose 305 mg/dL (80-115); Potassium 4.5 mmol/L (3.5-5.1); Protein, Total 8.2 g/dL (5.8-8.1); Sodium 138 mmol/L (136-145)
[2022-01-08] MEDS ORDERED: Baclofen 10 MG TAB PO PRN (14:02)
[2022-01-08] MEDS ORDERED: Nitroglycerin 0.4 MG TAB (25 Tab Bottle) SL PRN (14:02)
[2022-01-08] MEDS ORDERED: ALPRAZolam 0.25 MG TAB PO PRN (14:02)
[2022-01-08] MEDS ORDERED: SUMAtriptan Succinate 25 MG TAB PO PRN (14:02)
[2022-01-08] MEDS ORDERED: cloNIDine 0.1 MG TAB PO PRN (14:02)
[2022-01-08] MEDS ORDERED: Acetaminophen 325 MG TAB PO PRN (14:05)
[2022-01-08] MEDS ORDERED: Dextrose 5% in Water 1,000 ML IV PRN (14:05)
[2022-01-08] MEDS ORDERED: Dextrose 50% Abboject 50 ML SYRINGE SLOW IVP PRN (14:05)
[2022-01-08] MEDS ORDERED: Ondansetron PF 4 MG/2 ML Vial IVP PRN (14:05)
[2022-01-08 14:59] LABS: Hemoglobin 8.5 g/dL (12.0-15.5)
[2022-01-08 16:18] VITALS: BMI 43.3
[2022-01-08] MEDS ORDERED: GoLYTELY 4,000 ml Bottle PO SCH (17:00)
[2022-01-08] MEDS ORDERED: Pantoprazole 40 MG VIAL IVP SCH (17:00)
[2022-01-08] MEDS ORDERED: Lidocaine 5% Patch TD PRN (17:00)
[2022-01-08] MEDS: Lactated Ringer's 1,000 ML IV SCH (17:41)
[2022-01-08] MEDS: HumaLOG 300 UNITS/3 ML VIAL SC PRN (18:36)
[2022-01-08] MEDS ORDERED: traZODone HCl 50 MG TAB PO SCH (21:00)
[2022-01-08] MEDS ORDERED: Montelukast Sodium 10 mg Tablet PO SCH (21:00)
[2022-01-08 21:09] LABS: Hemoglobin 8.8 g/dL (12.0-15.5)
[2022-01-08] MEDS: Atorvastatin Calcium 40 MG TAB PO SCH ×2 (21:59→22:03)
[2022-01-08] MEDS: HYDROcodone/Acetaminophen 7.5/325 mg Tablet PO PRN (22:01)
[2022-01-08] MEDS: Pantoprazole 40 MG VIAL IVP SCH (22:02)
[2022-01-09 02:21] LABS: #Basophils 0.1 10x3/uL (0.0-0.2); #Eosinphils 0.5 10x3/uL (0.0-0.5); #Monocytes 0.9 10x3/uL (0.0-1.1); #Neutrophils 5.9 10x3/uL (1.5-8.4); %Basophils 0.9 % (0.0-2.0); %Eosinophils 5.2 % (0.0-6.0); %Lymphocytes 16.2 % (18.0-47.0); %Monocytes 10.2 % (0.0-10.0); %Neutrophils 67.2 % (40.0-75.0); Hemoglobin 8.1 g/dL (12.0-15.5); Mean Corpuscular HGB CONC 27.7 g/dL (32.0-36.0); Mean Corpuscular Volume 79.1 fl (81.6-98.3); Mean Platelet Volume 10.6 fl (7.4-10.4); Platelet Count 288 10x3/uL (150-450); RBC Distribution Width 18.8 % (11.5-14.5); Red Blood Cell (RBC) Count 3.69 10x6/uL (3.90-5.03); White Blood Cell (WBC) Count 8.7 10x3/uL (3.5-10.5)
[2022-01-09 02:46] LABS: Anisocytosis SLIGHT = 6-15 cells (100X) (0-5/hpf); Hypochromia SLIGHT = 6-15 cells (100X) (0-5/hpf); Macrocytosis SLIGHT = 6-15 cells (100X) (0-5/hpf); Microcytosis SLIGHT = 6-15 cells (100X) (0-5/hpf); Platelet Morphology Comment Appears Adequate; Schistocytes SLIGHT = 2-5 cells (100X) (0-1/hpf); Target Cells SLIGHT = 2-5 cells (100X) (0-1/hpf)
[2022-01-09 02:47] LABS: Elliptocytes SLIGHT = 2-5 cells (100X) (0-1/hpf)
[2022-01-09 03:05] LABS: Anion Gap 17 mmol/L (10-20); BUN (Urea Nitrogen) 33 mg/dL (9.8-20.1); Carbon Dioxide 22 mmol/L (23-31); Chloride 106 mmol/L (98-107); Potassium 3.9 mmol/L (3.5-5.1); Sodium 141 mmol/L (136-145)
[2022-01-09 03:06] LABS: Calc. Creatinine Clearance 79 mL/min (70-130); Calcium 8.8 mg/dL (7.8-10.44); Glucose 178 mg/dL (80-115)
[2022-01-09] MEDS ORDERED: Transdermal Patch Removal TOP SCH (05:00)
[2022-01-09] MEDS: Lactated Ringer's 1,000 ML IV SCH (05:15)
[2022-01-09] MEDS ORDERED: Preparation H HC 1% Cream 26 GM TUBE TOP PRN (07:34)
[2022-01-09] MEDS: HYDROcodone/Acetaminophen 7.5/325 mg Tablet PO PRN (08:26)
[2022-01-09] MEDS: Pantoprazole 40 MG VIAL IVP SCH (08:27)
[2022-01-09 08:36] VITALS: TEMP 98.4
[2022-01-09] MEDS ORDERED: Ferrous Sulfate 325 MG TAB PO SCH (09:00)
[2022-01-09] MEDS ORDERED: Carvedilol 12.5 MG TAB PO SCH (09:00)
[2022-01-09] MEDS ORDERED: Valsartan 80 MG TAB PO SCH (09:00)
[2022-01-09] MEDS: HumaLOG 300 UNITS/3 ML VIAL SC PRN (12:50)
[2022-01-09 12:57] VITALS: BP 118/60
[2022-01-09 21:10] LABS: SARS-CoV-2 PCR by NAA Not Detected (NotDetected)
== END 2022-01-09 13:30 | disposition home or self-care (01) ==
LOC: CSHERS 10:55 → INTOOBSV 16:09 → CSHTELE 16:09
PROVIDERS: ADMIT Family Medicine; ATTEND Internal Medicine
DX: K62.5 Hemorrhage of anus and rectum (principal); D12.2 Benign neoplasm of ascending colon; D64.9 Anemia, unspecified; K57.30 Diverticulosis of large intestine without perforation or abscess without bleeding; E11.22 Type 2 diabetes mellitus with diabetic chronic kidney disease; I13.0 Hypertensive heart and chronic kidney disease with heart failure and stage 1 through stage 4 chronic kidney disease, or unspecified chronic kidney disease; I50.42 Chronic combined systolic (congestive) and diastolic (congestive) heart failure; N18.30 Chronic kidney disease, stage 3 unspecified; E78.2 Mixed hyperlipidemia; I73.9 Peripheral vascular disease, unspecified; Z79.82 Long term (current) use of aspirin; Z79.4 Long term (current) use of insulin; Z79.899 Other long term (current) drug therapy; Z98.890 Other specified postprocedural states; Z95.1 Presence of aortocoronary bypass graft; Z95.5 Presence of coronary angioplasty implant and graft; Z95.810 Presence of automatic (implantable) cardiac defibrillator; Z87.891 Personal history of nicotine dependence; Z20.822 Contact with and (suspected) exposure to COVID-19
CPT/HCPCS: 80048; 80053; 82550; 82962 ×2; 85014; 85018; 85025 ×2; 85610; 85730; 86850; 86900; 86901; 96374; 96376 ×2; 99285; G0378 ×3; U0003; U0005; 36415; 36416; 82274; C9113; J1815; J7120

== ENCOUNTER 2022-01-10 09:59 | Outpatient (CLI) | payer MEDICARE | END 2022-01-10 10:00 | disposition home or self-care (01) | LOC: CSHWCC 09:59 | PROVIDERS: ATTEND Nurse Practitioner Family | DX: I87.332 Chronic venous hypertension (idiopathic) with ulcer and inflammation of left lower extremity (principal); E11.621 Type 2 diabetes mellitus with foot ulcer; L97.822 Non-pressure chronic ulcer of other part of left lower leg with fat layer exposed; L97.522 Non-pressure chronic ulcer of other part of left foot with fat layer exposed; S91.105D Unspecified open wound of left lesser toe(s) without damage to nail, subsequent encounter; R60.0 Localized edema | CPT/HCPCS: 29581; 99214; G0463 ==

== ENCOUNTER 2022-01-17 16:01 | Observation (INO) | payer MEDICARE ==
[2022-01-17] MEDS ORDERED: Ondansetron PF 4 MG/2 ML Vial IVP PRN (16:45)
[2022-01-17] MEDS ORDERED: Acetaminophen 650 MG Suppository PR PRN (16:45)
[2022-01-17] MEDS ORDERED: Ondansetron ODT 4 MG TAB PO PRN (16:45)
[2022-01-17] MEDS ORDERED: Acetaminophen 325 MG TAB PO PRN (16:45)
[2022-01-17] MEDS ORDERED: traMADol HCl 50 MG TAB PO PRN (16:49)
[2022-01-17] MEDS ORDERED: Melatonin 3 MG TAB PO PRN (18:05)
[2022-01-17] MEDS ORDERED: Furosemide 40 MG/4 ML VIAL SLOW IVP SCH (18:15)
[2022-01-17] MEDS ORDERED: HYDROcodone/Acetaminophen 5/325 mg Tablet PO PRN (18:17)
[2022-01-17] MEDS ORDERED: HumaLOG 300 UNITS/3 ML VIAL SC PRN (18:30)
[2022-01-17] MEDS ORDERED: Dextrose 5% in Water 1,000 ML IV PRN (18:30)
[2022-01-17] MEDS ORDERED: Dextrose 50% Abboject 50 ML SYRINGE IVP PRN (18:30)
[2022-01-17] MEDS ORDERED: Carvedilol 6.25 MG TAB PO SCH (21:00)
[2022-01-17] MEDS ORDERED: Lantus 1000 UNITS/10 ML VIAL SC SCH (21:00)
[2022-01-17] MEDS ORDERED: HumaLOG 300 UNITS/3 ML VIAL SC SCH (22:45)
[2022-01-17] MEDS ORDERED: Triple Antibiotic Oint 1 GM Packet TOP PRN (22:49)
[2022-01-17] MEDS: HYDROcodone/Acetaminophen 5/325 mg Tablet PO PRN (23:03)
[2022-01-17 23:45] LABS: Magnesium 1.7 mg/dL (1.6-2.6)
[2022-01-17 23:51] LABS: Troponin I 0.184 ng/mL (< 0.028)
[2022-01-18 05:17] LABS: #Basophils 0.1 10x3/uL (0.0-0.2); #Eosinphils 0.3 10x3/uL (0.0-0.5); #Monocytes 0.8 10x3/uL (0.0-1.1); #Neutrophils 4.3 10x3/uL (1.5-8.4); %Basophils 1.1 % (0.0-2.0); %Eosinophils 4.1 % (0.0-6.0); %Lymphocytes 22.6 % (18.0-47.0); %Monocytes 11.1 % (0.0-10.0); %Neutrophils 60.8 % (40.0-75.0); Hemoglobin 7.6 g/dL (12.0-15.5); Mean Corpuscular HGB CONC 27.9 g/dL (32.0-36.0); Mean Corpuscular Hemoglobin 22.3 pg (27.0-33.0); Mean Corpuscular Volume 79.8 fl (81.6-98.3); Mean Platelet Volume 10.9 fl (7.4-10.4); Platelet Count 435 10x3/uL (150-450); RBC Distribution Width 19.9 % (11.5-14.5); Red Blood Cell (RBC) Count 3.41 10x6/uL (3.90-5.03); White Blood Cell (WBC) Count 7.1 10x3/uL (3.5-10.5)
[2022-01-18 05:29] LABS: Anion Gap 16 mmol/L (10-20); BUN (Urea Nitrogen) 38 mg/dL (9.8-20.1); Calc. Creatinine Clearance 57 mL/min (70-130); Calcium 8.6 mg/dL (7.8-10.44); Carbon Dioxide 24 mmol/L (23-31); Chloride 104 mmol/L (98-107); Glucose 178 mg/dL (80-115); Potassium 4.7 mmol/L (3.5-5.1); Sodium 139 mmol/L (136-145)
[2022-01-18] MEDS: Furosemide 40 MG/4 ML VIAL SLOW IVP SCH ×2 (06:31→14:12)
[2022-01-18 06:37] LABS: Anisocytosis SLIGHT = 6-15 cells (100X) (0-5/hpf); Ovalocytes SLIGHT = 2-5 cells (100X) (0-1/hpf)
[2022-01-18 06:38] LABS: Platelet Morphology Comment Appears Adequate
[2022-01-18] MEDS ORDERED: Dextrose 5% in Water 1,000 ML IV PRN (07:44)
[2022-01-18] MEDS ORDERED: Dextrose 50% Abboject 50 ML SYRINGE SLOW IVP PRN (07:44)
[2022-01-18] MEDS ORDERED: HumaLOG 300 UNITS/3 ML VIAL SC PRN ×2 (07:44)
[2022-01-18] MEDS: Spironolactone 25 MG TAB PO SCH ×2 (09:18→09:21)
[2022-01-18] MEDS: Aspirin 325 mg Enteric Coated Tablet PO SCH (09:20)
[2022-01-18] MEDS: Metolazone 2.5 MG TAB PO SCH (09:20)
[2022-01-18 14:02] LABS: ALV-art Gradient 58.515 mmHg (0-20); Actual Bicarbonate (HCO3a) 26.3 mEq/L (22-28); Base Excess (BEa) 1.5 mEq/L (-2.0 to +3.0); CO2 Tension 42.1 mmHg (35.0-45.0); Calcium, Ionized (arterial) 1.14 mmol/L (1.12-1.30); Carboxyhemoglobin (COHb) 1.4 gm% (0.0-3.0); O2 Tension (PaO2), arterial 88.5 mmHg (> 80.0); Potassium - ABG Lab 4.6 mmol/L (3.70-5.30); Puncture Site RBA; pH, Arterial 7.41 (7.35-7.45)
[2022-01-18] MEDS ORDERED: Senokot S 8.6-50 MG TAB PO PRN (16:33)
[2022-01-18] MEDS: HYDROcodone/Acetaminophen 5/325 mg Tablet PO PRN (17:36)
[2022-01-18] MEDS ORDERED: Carvedilol 6.25 MG TAB PO SCH (18:15)
[2022-01-18] MEDS: Lantus 1000 UNITS/10 ML VIAL SC SCH (20:57)
[2022-01-19] MEDS: Furosemide 40 MG/4 ML VIAL SLOW IVP SCH ×2 (05:15→13:19)
[2022-01-19 06:39] LABS: #Basophils 0.1 10x3/uL (0.0-0.2); #Eosinphils 0.3 10x3/uL (0.0-0.5); #Monocytes 0.9 10x3/uL (0.0-1.1); #Neutrophils 4.4 10x3/uL (1.5-8.4); %Basophils 1.2 % (0.0-2.0); %Eosinophils 4.2 % (0.0-6.0); %Lymphocytes 23.6 % (18.0-47.0); %Monocytes 12.4 % (0.0-10.0); %Neutrophils 58.3 % (40.0-75.0); Hemoglobin 8.4 g/dL (12.0-15.5); Mean Corpuscular HGB CONC 27.8 g/dL (32.0-36.0); Mean Corpuscular Volume 79.3 fl (81.6-98.3); Mean Platelet Volume 10.9 fl (7.4-10.4); Platelet Count 548 10x3/uL (150-450); Red Blood Cell (RBC) Count 3.81 10x6/uL (3.90-5.03); White Blood Cell (WBC) Count 7.6 10x3/uL (3.5-10.5)
[2022-01-19 06:48] LABS: Anion Gap 17 mmol/L (10-20); BUN (Urea Nitrogen) 37 mg/dL (9.8-20.1); Calc. Creatinine Clearance 59 mL/min (70-130); Calcium 9.2 mg/dL (7.8-10.44); Carbon Dioxide 27 mmol/L (23-31); Chloride 100 mmol/L (98-107); Glucose 168 mg/dL (80-115); Potassium 4.6 mmol/L (3.5-5.1); Sodium 139 mmol/L (136-145)
[2022-01-19] MEDS ORDERED: Carvedilol 6.25 MG TAB PO SCH (08:00)
[2022-01-19] MEDS ORDERED: Aspirin 81 mg Enteric Coated Tablet PO SCH (09:00)
[2022-01-19] MEDS: Spironolactone 25 MG TAB PO SCH (09:08)
[2022-01-19] MEDS: Metolazone 2.5 MG TAB PO SCH (09:08)
[2022-01-19] MEDS: Lantus 1000 UNITS/10 ML VIAL SC SCH (09:12)
[2022-01-19] MEDS: Aspirin 325 mg Enteric Coated Tablet PO SCH (11:28)
[2022-01-19 12:15] VITALS: TEMP 97.7
[2022-01-19] MEDS: HYDROcodone/Acetaminophen 5/325 mg Tablet PO PRN (15:17)
[2022-01-19 15:42] VITALS: BP 139/88
== END 2022-01-19 15:37 | disposition home or self-care (01) ==
LOC: INTOOBSV 16:01 → CSHTELE 16:01
PROVIDERS: ADMIT Family Medicine; ATTEND Internal Medicine
DX: J96.00 Acute respiratory failure, unspecified whether with hypoxia or hypercapnia (principal); I13.0 Hypertensive heart and chronic kidney disease with heart failure and stage 1 through stage 4 chronic kidney disease, or unspecified chronic kidney disease; I50.43 Acute on chronic combined systolic (congestive) and diastolic (congestive) heart failure; N18.30 Chronic kidney disease, stage 3 unspecified; I25.5 Ischemic cardiomyopathy; I25.10 Atherosclerotic heart disease of native coronary artery without angina pectoris; E11.9 Type 2 diabetes mellitus without complications; E78.5 Hyperlipidemia, unspecified; Z87.891 Personal history of nicotine dependence; I73.9 Peripheral vascular disease, unspecified; Z79.899 Other long term (current) drug therapy; Z79.82 Long term (current) use of aspirin; Z79.4 Long term (current) use of insulin; Z95.1 Presence of aortocoronary bypass graft; Z95.810 Presence of automatic (implantable) cardiac defibrillator; D64.9 Anemia, unspecified; E66.9 Obesity, unspecified
CPT/HCPCS: 36600; 71045; 80048 ×2; 82805; 82962 ×3; 83735; 83880; 84484; 85025 ×2; 94760 ×2; 97116; 97139 ×4; 97530 ×2; G0378; 36416; J1815; J1940

== ENCOUNTER 2022-01-25 17:21 | Inpatient (IN) | payer MEDICARE ==
[2022-01-25 17:56] LABS: #Basophils 0.1 10x3/uL (0.0-0.2); #Eosinphils 0.2 10x3/uL (0.0-0.5); #Monocytes 0.7 10x3/uL (0.0-1.1); #Neutrophils 6.3 10x3/uL (1.5-8.4); %Eosinophils 2.8 % (0.0-6.0); %Lymphocytes 14.3 % (18.0-47.0); %Monocytes 8.4 % (0.0-10.0); Hemoglobin 7.9 g/dL (12.0-15.5); Mean Corpuscular HGB CONC 28.1 g/dL (32.0-36.0); Mean Corpuscular Volume 78.3 fl (81.6-98.3); Mean Platelet Volume 10.3 fl (7.4-10.4); Platelet Count 371 10x3/uL (150-450); RBC Distribution Width 19.4 % (11.5-14.5); Red Blood Cell (RBC) Count 3.59 10x6/uL (3.90-5.03); White Blood Cell (WBC) Count 8.7 10x3/uL (3.5-10.5)
[2022-01-25 18:04] LABS: ALT (SGPT) 11 U/L (8-55); AST (SGOT) 18 U/L (5-34); Albumin 3.7 g/dL (3.4-4.8); Alkaline Phosphatase 83 U/L (40-110); Anion Gap 19 mmol/L (10-20); BUN (Urea Nitrogen) 63 mg/dL (9.8-20.1); Bilirubin, Total 0.3 mg/dL (0.2-1.2); CK (CPK) 58 U/L (29-168); Calc. Creatinine Clearance 0 mL/min (70-130); Calcium 8.4 mg/dL (7.8-10.44); Carbon Dioxide 21 mmol/L (23-31); Chloride 99 mmol/L (98-107); Globulin 4.1 g/dL (2.4-3.5); Glucose 239 mg/dL (80-115); Lipase 22 U/L (8-78); Potassium 4.2 mmol/L (3.5-5.1); Protein, Total 7.8 g/dL (5.8-8.1); Sodium 135 mmol/L (136-145)
[2022-01-25 18:27] LABS: CKMB 1.8 ng/mL (0-6.6)
[2022-01-25] MEDS ORDERED: Metoprolol Tartrate 5 MG/5 ML VIAL ONE (19:12)
[2022-01-25] MEDS ORDERED: Aspirin Chewable 81 MG TAB ONE (19:12)
[2022-01-25] MEDS ORDERED: Furosemide 40 MG/4 ML VIAL ONE (19:12)
[2022-01-25 21:46] LABS: Lactic Acid 2.2 mmol/L (0.5-2.2)
[2022-01-25] MEDS ORDERED: Dextrose 50% Abboject 50 ML SYRINGE SLOW IVP PRN (22:03)
[2022-01-25] MEDS ORDERED: Guaifenesin DM 100-10/5 ML UDCUP PO PRN (22:03)
[2022-01-25] MEDS ORDERED: Acetaminophen 325 MG TAB PO PRN (22:03)
[2022-01-25] MEDS ORDERED: Dextrose 5% in Water 1,000 ML IV PRN (22:03)
[2022-01-25] MEDS ORDERED: Calcium Carbonate 500 MG ChewTAB PO PRN (22:03)
[2022-01-25] MEDS ORDERED: Metoprolol Tartrate 25 MG TAB PO SCH (22:15)
[2022-01-25] MEDS: HumaLOG 300 UNITS/3 ML VIAL SC PRN (23:16)
[2022-01-25 23:43] LABS: CKMB 1.7 ng/mL (0-6.6)
[2022-01-26 04:22] LABS: Anion Gap 19 mmol/L (10-20); BUN (Urea Nitrogen) 70 mg/dL (9.8-20.1); Calc. Creatinine Clearance 42 mL/min (70-130); Calcium 8.9 mg/dL (7.8-10.44); Carbon Dioxide 25 mmol/L (23-31); Chloride 99 mmol/L (98-107); Glucose 286 mg/dL (80-115); Iron 34 ug/dL (50-170); Iron Binding Capacity, Total 483 mcg/dL (265-497); Potassium 4.6 mmol/L (3.5-5.1); Sodium 138 mmol/L (136-145)
[2022-01-26 04:38] LABS: #Basophils 0.1 10x3/uL (0.0-0.2); #Eosinphils 0.1 10x3/uL (0.0-0.5); #Monocytes 0.8 10x3/uL (0.0-1.1); #Neutrophils 6.8 10x3/uL (1.5-8.4); %Basophils 0.9 % (0.0-2.0); %Lymphocytes 12.6 % (18.0-47.0); %Monocytes 8.9 % (0.0-10.0); %Neutrophils 76.1 % (40.0-75.0); Hemoglobin 8.1 g/dL (12.0-15.5); Mean Corpuscular HGB CONC 28.1 g/dL (32.0-36.0); Mean Corpuscular Hemoglobin 21.8 pg (27.0-33.0); Mean Corpuscular Volume 77.6 fl (81.6-98.3); Mean Platelet Volume 10.9 fl (7.4-10.4); Platelet Count 402 10x3/uL (150-450); RBC Distribution Width 19.6 % (11.5-14.5); Red Blood Cell (RBC) Count 3.71 10x6/uL (3.90-5.03); White Blood Cell (WBC) Count 8.9 10x3/uL (3.5-10.5)
[2022-01-26 04:39] LABS: Thyroid Stimulating Hormone 4.1532 uIU/mL (0.35-4.94)
[2022-01-26 04:43] LABS: CKMB 1.6 ng/mL (0-6.6)
[2022-01-26] MEDS: Furosemide 40 MG/4 ML VIAL SLOW IVP SCH ×2 (06:25→13:03)
[2022-01-26] MEDS: HYDROcodone/Acetaminophen 5/325 mg Tablet PO PRN ×2 (06:26→14:14)
[2022-01-26] MEDS: HumaLOG 300 UNITS/3 ML VIAL SC PRN ×3 (06:27→20:33)
[2022-01-26 06:50] LABS: Anisocytosis SLIGHT = 6-15 cells (100X) (0-5/hpf); Hypochromia MODERATE=16-30 cells (100X) (0-5/hpf); Microcytosis SLIGHT = 6-15 cells (100X) (0-5/hpf); Ovalocytes SLIGHT = 2-5 cells (100X) (0-1/hpf); Polychromasia SLIGHT = 2-3 cells (100X) (0-2/hpf); Schistocytes SLIGHT = 2-5 cells (100X) (0-1/hpf); Stomatocytes SLIGHT = 2-5 cells (100X) (0-1/hpf)
[2022-01-26 06:51] LABS: Platelet Morphology Comment Appears Adequate
[2022-01-26] MEDS: Mometasone/Formoterol 200/5 60 PUFF INH SCH ×2 (06:57→19:18)
[2022-01-26] MEDS ORDERED: Carvedilol 6.25 MG TAB PO SCH (09:00)
[2022-01-26] MEDS ORDERED: Potassium Chloride 20 MEQ TAB PO SCH (09:00)
[2022-01-26] MEDS ORDERED: Spironolactone 25 MG TAB PO SCH (09:00)
[2022-01-26] MEDS: Clopidogrel Bisulfate 75 MG TAB PO SCH (10:43)
[2022-01-26] MEDS: Magnesium Oxide 400 MG TAB PO SCH (10:44)
[2022-01-26] MEDS: Aspirin 81 mg Enteric Coated Tablet PO SCH (10:44)
[2022-01-26] MEDS: Baclofen 10 MG TAB PO SCH ×2 (10:44→20:31)
[2022-01-26] MEDS: Enoxaparin Sodium 30 MG/0.3 ML SYRINGE SC SCH (10:45)
[2022-01-26] MEDS: Lantus 1000 UNITS/10 ML VIAL SC SCH ×2 (10:45→20:27)
[2022-01-26] MEDS: Carvedilol 12.5 MG TAB PO SCH ×2 (10:45→16:43)
[2022-01-26] MEDS ORDERED: Losartan 25 MG TAB PO SCH (11:15)
[2022-01-26] MEDS ORDERED: Dronedarone HCl 400 MG TAB PO SCH (12:15)
[2022-01-26] MEDS: Digoxin 0.5 MG/2 ML AMP SLOW IVP SCH ×2 (13:03→14:09)
[2022-01-26 16:01] LABS: SARS-CoV-2 PCR by NAA Not Detected (NotDetected)
[2022-01-26] MEDS: Dronedarone HCl 400 MG TAB PO SCH (16:43)
[2022-01-26] MEDS: traZODone HCl 50 MG TAB PO SCH (20:31)
[2022-01-26] MEDS: Ondansetron PF 4 MG/2 ML Vial IVP PRN (21:25)
[2022-01-26 21:41] LABS: #Basophils 0.1 10x3/uL (0.0-0.2); #Eosinphils 0.1 10x3/uL (0.0-0.5); #Monocytes 0.9 10x3/uL (0.0-1.1); #Neutrophils 8.4 10x3/uL (1.5-8.4); %Basophils 0.6 % (0.0-2.0); %Eosinophils 0.5 % (0.0-6.0); %Monocytes 8.7 % (0.0-10.0); %Neutrophils 77.9 % (40.0-75.0); Hemoglobin 8.3 g/dL (12.0-15.5); Mean Corpuscular HGB CONC 27.9 g/dL (32.0-36.0); Mean Corpuscular Hemoglobin 21.9 pg (27.0-33.0); Mean Corpuscular Volume 78.6 fl (81.6-98.3); Mean Platelet Volume 10.7 fl (7.4-10.4); Platelet Count 349 10x3/uL (150-450); RBC Distribution Width 19.5 % (11.5-14.5); Red Blood Cell (RBC) Count 3.79 10x6/uL (3.90-5.03); White Blood Cell (WBC) Count 10.8 10x3/uL (3.5-10.5)
[2022-01-26 21:55] LABS: Anion Gap 20 mmol/L (10-20); BUN (Urea Nitrogen) 80 mg/dL (9.8-20.1); Calc. Creatinine Clearance 36 mL/min (70-130); Calcium 8.9 mg/dL (7.8-10.44); Carbon Dioxide 24 mmol/L (23-31); Chloride 95 mmol/L (98-107); Glucose 361 mg/dL (80-115); Magnesium 2.3 mg/dL (1.6-2.6); Potassium 4.8 mmol/L (3.5-5.1); Sodium 134 mmol/L (136-145)
[2022-01-26] MEDS ORDERED: Sodium Chloride 0.9% 250 ML IV SCH (23:00)
[2022-01-27 04:42] LABS: Anion Gap 21 mmol/L (10-20); BUN (Urea Nitrogen) 80 mg/dL (9.8-20.1); Calc. Creatinine Clearance 37 mL/min (70-130); Calcium 8.6 mg/dL (7.8-10.44); Carbon Dioxide 21 mmol/L (23-31); Chloride 100 mmol/L (98-107); Glucose 259 mg/dL (80-115); Magnesium 2.3 mg/dL (1.6-2.6); Potassium 5.2 mmol/L (3.5-5.1); Sodium 137 mmol/L (136-145)
[2022-01-27 04:50] LABS: #Basophils 0.1 10x3/uL (0.0-0.2); #Monocytes 0.6 10x3/uL (0.0-1.1); #Neutrophils 7.1 10x3/uL (1.5-8.4); %Basophils 0.6 % (0.0-2.0); %Eosinophils 0.5 % (0.0-6.0); %Lymphocytes 11.8 % (18.0-47.0); %Monocytes 7.2 % (0.0-10.0); %Neutrophils 79.6 % (40.0-75.0); Hemoglobin 7.8 g/dL (12.0-15.5); Mean Corpuscular HGB CONC 27.9 g/dL (32.0-36.0); Mean Corpuscular Hemoglobin 22.2 pg (27.0-33.0); Mean Corpuscular Volume 79.5 fl (81.6-98.3); Mean Platelet Volume 11.1 fl (7.4-10.4); Platelet Count 330 10x3/uL (150-450); RBC Distribution Width 19.3 % (11.5-14.5); Red Blood Cell (RBC) Count 3.52 10x6/uL (3.90-5.03); White Blood Cell (WBC) Count 8.9 10x3/uL (3.5-10.5)
[2022-01-27] MEDS: Mometasone/Formoterol 200/5 60 PUFF INH SCH ×2 (05:25→18:30)
[2022-01-27] MEDS: HumaLOG 300 UNITS/3 ML VIAL SC PRN ×2 (06:06→17:17)
[2022-01-27] MEDS ORDERED: Spironolactone 25 MG TAB PO SCH (08:00)
[2022-01-27] MEDS: Carvedilol 12.5 MG TAB PO SCH ×2 (08:34→16:56)
[2022-01-27] MEDS: Enoxaparin Sodium 30 MG/0.3 ML SYRINGE SC SCH (08:34)
[2022-01-27] MEDS: Digoxin 0.125 MG TAB PO SCH (08:35)
[2022-01-27] MEDS: Lantus 1000 UNITS/10 ML VIAL SC SCH ×2 (08:35→20:43)
[2022-01-27] MEDS: Magnesium Oxide 400 MG TAB PO SCH (08:35)
[2022-01-27] MEDS: Clopidogrel Bisulfate 75 MG TAB PO SCH (08:36)
[2022-01-27] MEDS: Dronedarone HCl 400 MG TAB PO SCH ×2 (08:36→17:17)
[2022-01-27] MEDS: Baclofen 10 MG TAB PO SCH ×2 (08:36→20:41)
[2022-01-27] MEDS: Aspirin 81 mg Enteric Coated Tablet PO SCH (08:36)
[2022-01-27] MEDS ORDERED: Losartan 25 MG TAB PO SCH (09:00)
[2022-01-27 12:22] LABS: Potassium 4.7 mmol/L (3.5-5.1)
[2022-01-27] MEDS: traZODone HCl 50 MG TAB PO SCH (20:41)
[2022-01-27] MEDS: HYDROcodone/Acetaminophen 5/325 mg Tablet PO PRN (20:41)
[2022-01-28 04:48] LABS: #Basophils 0.1 10x3/uL (0.0-0.2); #Eosinphils 0.3 10x3/uL (0.0-0.5); #Monocytes 1.1 10x3/uL (0.0-1.1); %Basophils 0.8 % (0.0-2.0); %Eosinophils 2.3 % (0.0-6.0); %Lymphocytes 15.1 % (18.0-47.0); %Monocytes 9.5 % (0.0-10.0); %Neutrophils 71.9 % (40.0-75.0); Hemoglobin 7.5 g/dL (12.0-15.5); Mean Corpuscular HGB CONC 28.4 g/dL (32.0-36.0); Mean Corpuscular Hemoglobin 22.2 pg (27.0-33.0); Mean Corpuscular Volume 78.1 fl (81.6-98.3); Platelet Count 282 10x3/uL (150-450); RBC Distribution Width 19.7 % (11.5-14.5); Red Blood Cell (RBC) Count 3.38 10x6/uL (3.90-5.03); White Blood Cell (WBC) Count 11.1 10x3/uL (3.5-10.5)
[2022-01-28 04:56] LABS: Anion Gap 19 mmol/L (10-20); BUN (Urea Nitrogen) 78 mg/dL (9.8-20.1); Calc. Creatinine Clearance 42 mL/min (70-130); Calcium 8.6 mg/dL (7.8-10.44); Carbon Dioxide 23 mmol/L (23-31); Chloride 105 mmol/L (98-107); Glucose 138 mg/dL (80-115); Magnesium 2.4 mg/dL (1.6-2.6); Potassium 4.7 mmol/L (3.5-5.1); Sodium 142 mmol/L (136-145)
[2022-01-28] MEDS: Mometasone/Formoterol 200/5 60 PUFF INH SCH ×2 (06:52→21:25)
[2022-01-28] MEDS: Ondansetron PF 4 MG/2 ML Vial IVP PRN ×2 (08:34→13:40)
[2022-01-28] MEDS: Lantus 1000 UNITS/10 ML VIAL SC SCH ×2 (08:35→20:36)
[2022-01-28] MEDS: Magnesium Oxide 400 MG TAB PO SCH (08:36)
[2022-01-28] MEDS: Aspirin 81 mg Enteric Coated Tablet PO SCH (08:36)
[2022-01-28] MEDS: Digoxin 0.125 MG TAB PO SCH (08:36)
[2022-01-28] MEDS: Dronedarone HCl 400 MG TAB PO SCH ×2 (08:36→16:40)
[2022-01-28] MEDS: Baclofen 10 MG TAB PO SCH (08:37)
[2022-01-28] MEDS: Enoxaparin Sodium 30 MG/0.3 ML SYRINGE SC SCH (08:37)
[2022-01-28] MEDS: Clopidogrel Bisulfate 75 MG TAB PO SCH (08:37)
[2022-01-28] MEDS: HYDROcodone/Acetaminophen 5/325 mg Tablet PO PRN ×2 (12:08→20:35)
[2022-01-28 12:36] LABS: Hemoglobin A1c 9.2 % (4.0-6.0)
[2022-01-28] MEDS ORDERED: Promethazine HCl 12.5 MG in Sodium Chloride 0.9% 50 ML IVPB SCH (16:15)
[2022-01-28] MEDS: HumaLOG 300 UNITS/3 ML VIAL SC PRN (16:46)
[2022-01-28] MEDS: traZODone HCl 50 MG TAB PO SCH (21:31)
[2022-01-29] MEDS: Ondansetron PF 4 MG/2 ML Vial IVP PRN (00:49)
[2022-01-29] MEDS: Baclofen 10 MG TAB PO PRN (00:58)
[2022-01-29] MEDS: HYDROcodone/Acetaminophen 5/325 mg Tablet PO PRN ×3 (03:02→17:50)
[2022-01-29] MEDS: Senokot S 8.6-50 MG TAB PO PRN (03:56)
[2022-01-29 04:27] LABS: #Basophils 0.1 10x3/uL (0.0-0.2); #Eosinphils 0.1 10x3/uL (0.0-0.5); #Monocytes 1.3 10x3/uL (0.0-1.1); #Neutrophils 7.6 10x3/uL (1.5-8.4); %Basophils 0.9 % (0.0-2.0); %Eosinophils 1.3 % (0.0-6.0); %Monocytes 12.1 % (0.0-10.0); %Neutrophils 72.3 % (40.0-75.0); Mean Corpuscular Hemoglobin 23.1 pg (27.0-33.0); Mean Corpuscular Volume 79.7 fl (81.6-98.3); Mean Platelet Volume 11.5 fl (7.4-10.4); Platelet Count 262 10x3/uL (150-450); RBC Distribution Width 19.6 % (11.5-14.5); Red Blood Cell (RBC) Count 3.89 10x6/uL (3.90-5.03); White Blood Cell (WBC) Count 10.5 10x3/uL (3.5-10.5)
[2022-01-29 04:34] LABS: Anion Gap 20 mmol/L (10-20); BUN (Urea Nitrogen) 79 mg/dL (9.8-20.1); Calc. Creatinine Clearance 48 mL/min (70-130); Calcium 8.9 mg/dL (7.8-10.44); Carbon Dioxide 22 mmol/L (23-31); Chloride 104 mmol/L (98-107); Glucose 187 mg/dL (80-115); Potassium 4.9 mmol/L (3.5-5.1); Sodium 141 mmol/L (136-145)
[2022-01-29 04:42] LABS: Hypochromia SLIGHT = 6-15 cells (100X) (0-5/hpf); Ovalocytes SLIGHT = 2-5 cells (100X) (0-1/hpf)
[2022-01-29 04:43] LABS: Anisocytosis SLIGHT = 6-15 cells (100X) (0-5/hpf); Platelet Morphology Comment Appears Adequate
[2022-01-29] MEDS: HumaLOG 300 UNITS/3 ML VIAL SC PRN ×2 (06:10→17:50)
[2022-01-29] MEDS: Mometasone/Formoterol 200/5 60 PUFF INH SCH ×2 (07:15→17:11)
[2022-01-29] MEDS: Carvedilol 12.5 MG TAB PO SCH ×2 (08:16→15:47)
[2022-01-29] MEDS: Aspirin 81 mg Enteric Coated Tablet PO SCH (08:16)
[2022-01-29] MEDS: Clopidogrel Bisulfate 75 MG TAB PO SCH (08:16)
[2022-01-29] MEDS: Magnesium Oxide 400 MG TAB PO SCH (08:16)
[2022-01-29] MEDS: Digoxin 0.125 MG TAB PO SCH (08:16)
[2022-01-29] MEDS: Lantus 1000 UNITS/10 ML VIAL SC SCH ×2 (08:18→21:46)
[2022-01-29] MEDS: Dronedarone HCl 400 MG TAB PO SCH ×2 (08:18→15:47)
[2022-01-29] MEDS: Enoxaparin Sodium 40 MG/0.4 ML SYRINGE SC SCH (08:18)
[2022-01-29] MEDS: traZODone HCl 50 MG TAB PO SCH (21:47)
[2022-01-30] MEDS: HYDROcodone/Acetaminophen 5/325 mg Tablet PO PRN ×4 (01:22→21:00)
[2022-01-30 04:47] LABS: #Basophils 0.1 10x3/uL (0.0-0.2); #Eosinphils 0.1 10x3/uL (0.0-0.5); #Neutrophils 8.3 10x3/uL (1.5-8.4); %Basophils 0.7 % (0.0-2.0); %Eosinophils 1.2 % (0.0-6.0); %Monocytes 9.7 % (0.0-10.0); Hemoglobin 8.7 g/dL (12.0-15.5); Mean Corpuscular HGB CONC 29.8 g/dL (32.0-36.0); Mean Corpuscular Hemoglobin 23.6 pg (27.0-33.0); Mean Corpuscular Volume 79.1 fl (81.6-98.3); Mean Platelet Volume 11.2 fl (7.4-10.4); Platelet Count 200 10x3/uL (150-450); RBC Distribution Width 19.6 % (11.5-14.5); Red Blood Cell (RBC) Count 3.69 10x6/uL (3.90-5.03); White Blood Cell (WBC) Count 10.6 10x3/uL (3.5-10.5)
[2022-01-30 05:15] LABS: Anion Gap 17 mmol/L (10-20); BUN (Urea Nitrogen) 68 mg/dL (9.8-20.1); Calc. Creatinine Clearance 51 mL/min (70-130); Calcium 8.6 mg/dL (7.8-10.44); Carbon Dioxide 25 mmol/L (23-31); Chloride 106 mmol/L (98-107); Glucose 208 mg/dL (80-115); Potassium 4.6 mmol/L (3.5-5.1); Sodium 143 mmol/L (136-145)
[2022-01-30] MEDS: Senokot S 8.6-50 MG TAB PO PRN (05:38)
[2022-01-30] MEDS: HumaLOG 300 UNITS/3 ML VIAL SC PRN ×3 (06:22→17:59)
[2022-01-30] MEDS: Mometasone/Formoterol 200/5 60 PUFF INH SCH ×2 (08:34→18:31)
[2022-01-30] MEDS: Carvedilol 12.5 MG TAB PO SCH ×2 (09:04→16:00)
[2022-01-30] MEDS: Aspirin 81 mg Enteric Coated Tablet PO SCH (09:04)
[2022-01-30] MEDS: Enoxaparin Sodium 40 MG/0.4 ML SYRINGE SC SCH (09:04)
[2022-01-30] MEDS: Lantus 1000 UNITS/10 ML VIAL SC SCH ×2 (09:05→20:49)
[2022-01-30] MEDS: Clopidogrel Bisulfate 75 MG TAB PO SCH (09:05)
[2022-01-30] MEDS: Dronedarone HCl 400 MG TAB PO SCH ×2 (09:05→16:00)
[2022-01-30] MEDS: Digoxin 0.125 MG TAB PO SCH (09:05)
[2022-01-30] MEDS: Magnesium Oxide 400 MG TAB PO SCH (09:05)
[2022-01-30] MEDS: Baclofen 10 MG TAB PO PRN (13:15)
[2022-01-30] MEDS: traZODone HCl 50 MG TAB PO SCH (20:49)
[2022-01-30] MEDS ORDERED: Ondansetron ODT 4 MG TAB PO SCH (23:45)
[2022-01-30] MEDS: ALPRAZolam 0.25 MG TAB PO PRN (23:52)
[2022-01-31] MEDS ORDERED: Milk Of Magnesia 30 ML UDCUP PO SCH (04:00)
[2022-01-31] MEDS: Digoxin 0.125 MG TAB PO SCH (08:47)
[2022-01-31] MEDS: Magnesium Oxide 400 MG TAB PO SCH (08:47)
[2022-01-31] MEDS: Aspirin 81 mg Enteric Coated Tablet PO SCH (08:48)
[2022-01-31] MEDS: Lantus 1000 UNITS/10 ML VIAL SC SCH ×2 (08:48→22:40)
[2022-01-31] MEDS: Carvedilol 12.5 MG TAB PO SCH ×2 (08:48→16:25)
[2022-01-31] MEDS: Clopidogrel Bisulfate 75 MG TAB PO SCH (08:48)
[2022-01-31] MEDS: Dronedarone HCl 400 MG TAB PO SCH ×2 (08:48→16:25)
[2022-01-31] MEDS: Enoxaparin Sodium 40 MG/0.4 ML SYRINGE SC SCH (08:48)
[2022-01-31] MEDS: Baclofen 10 MG TAB PO PRN (08:58)
[2022-01-31] MEDS: Mometasone/Formoterol 200/5 60 PUFF INH SCH ×2 (09:46→19:50)
[2022-01-31] MEDS: HYDROcodone/Acetaminophen 5/325 mg Tablet PO PRN ×2 (13:48→20:16)
[2022-01-31] MEDS ORDERED: Magnesium Citrate 300 ML BOT PO SCH (15:00)
[2022-01-31] MEDS: HumaLOG 300 UNITS/3 ML VIAL SC PRN (17:33)
[2022-01-31] MEDS: traZODone HCl 50 MG TAB PO SCH (22:41)
[2022-02-01 04:46] LABS: ALT (SGPT) 11 U/L (8-55); AST (SGOT) 15 U/L (5-34); Albumin 3.4 g/dL (3.4-4.8); Alkaline Phosphatase 83 U/L (40-110); Anion Gap 15 mmol/L (10-20); BUN (Urea Nitrogen) 56 mg/dL (9.8-20.1); Bilirubin, Total 0.6 mg/dL (0.2-1.2); Calc. Creatinine Clearance 73 mL/min (70-130); Calcium 8.7 mg/dL (7.8-10.44); Carbon Dioxide 28 mmol/L (23-31); Chloride 106 mmol/L (98-107); Globulin 4.1 g/dL (2.4-3.5); Potassium 4.2 mmol/L (3.5-5.1); Protein, Total 7.5 g/dL (5.8-8.1); Sodium 145 mmol/L (136-145)
[2022-02-01 05:03] LABS: Glucose 39 mg/dL (80-115)
[2022-02-01] MEDS: Mometasone/Formoterol 200/5 60 PUFF INH SCH ×2 (05:45→20:10)
[2022-02-01] MEDS: Aspirin 81 mg Enteric Coated Tablet PO SCH (08:04)
[2022-02-01] MEDS: Digoxin 0.125 MG TAB PO SCH (08:04)
[2022-02-01] MEDS: Dronedarone HCl 400 MG TAB PO SCH ×2 (08:05→17:14)
[2022-02-01] MEDS: Carvedilol 12.5 MG TAB PO SCH ×2 (08:06→17:14)
[2022-02-01] MEDS: Enoxaparin Sodium 40 MG/0.4 ML SYRINGE SC SCH (08:06)
[2022-02-01] MEDS: Magnesium Oxide 400 MG TAB PO SCH (08:06)
[2022-02-01] MEDS: Clopidogrel Bisulfate 75 MG TAB PO SCH (08:06)
[2022-02-01] MEDS: Baclofen 10 MG TAB PO PRN (08:11)
[2022-02-01] MEDS: HYDROcodone/Acetaminophen 5/325 mg Tablet PO PRN ×3 (10:12→23:27)
[2022-02-01] MEDS: Lantus 1000 UNITS/10 ML VIAL SC SCH ×2 (10:30→22:09)
[2022-02-01] MEDS: HumaLOG 300 UNITS/3 ML VIAL SC PRN (17:15)
[2022-02-01] MEDS: traZODone HCl 50 MG TAB PO SCH (22:12)
[2022-02-02 04:13] LABS: ALT (SGPT) 10 U/L (8-55); AST (SGOT) 12 U/L (5-34); Albumin 3.1 g/dL (3.4-4.8); Alkaline Phosphatase 80 U/L (40-110); Anion Gap 17 mmol/L (10-20); BUN (Urea Nitrogen) 53 mg/dL (9.8-20.1); Bilirubin, Total 0.5 mg/dL (0.2-1.2); Calc. Creatinine Clearance 69 mL/min (70-130); Calcium 8.4 mg/dL (7.8-10.44); Carbon Dioxide 25 mmol/L (23-31); Chloride 105 mmol/L (98-107); Globulin 3.8 g/dL (2.4-3.5); Glucose 260 mg/dL (80-115); Potassium 4.8 mmol/L (3.5-5.1); Protein, Total 6.9 g/dL (5.8-8.1); Sodium 142 mmol/L (136-145)
[2022-02-02] MEDS: HumaLOG 300 UNITS/3 ML VIAL SC PRN ×2 (06:09→21:23)
[2022-02-02] MEDS: Mometasone/Formoterol 200/5 60 PUFF INH SCH ×2 (06:37→19:55)
[2022-02-02] MEDS: Baclofen 10 MG TAB PO PRN (09:00)
[2022-02-02] MEDS: HYDROcodone/Acetaminophen 5/325 mg Tablet PO PRN ×3 (09:00→20:10)
[2022-02-02] MEDS: Digoxin 0.125 MG TAB PO SCH (09:01)
[2022-02-02] MEDS: Dronedarone HCl 400 MG TAB PO SCH ×2 (09:01→20:09)
[2022-02-02] MEDS: Clopidogrel Bisulfate 75 MG TAB PO SCH (09:01)
[2022-02-02] MEDS: Magnesium Oxide 400 MG TAB PO SCH (09:01)
[2022-02-02] MEDS: Enoxaparin Sodium 40 MG/0.4 ML SYRINGE SC SCH (09:02)
[2022-02-02] MEDS: Aspirin 81 mg Enteric Coated Tablet PO SCH (09:02)
[2022-02-02] MEDS: Carvedilol 12.5 MG TAB PO SCH ×2 (09:02→20:09)
[2022-02-02] MEDS: Lantus 1000 UNITS/10 ML VIAL SC SCH ×2 (09:14→21:03)
[2022-02-02] MEDS: traZODone HCl 50 MG TAB PO SCH (21:03)
[2022-02-03] MEDS: Baclofen 10 MG TAB PO PRN (02:50)
[2022-02-03 05:01] LABS: ALT (SGPT) 9 U/L (8-55); AST (SGOT) 13 U/L (5-34); Albumin 3.2 g/dL (3.4-4.8); Alkaline Phosphatase 74 U/L (40-110); Anion Gap 15 mmol/L (10-20); BUN (Urea Nitrogen) 47 mg/dL (9.8-20.1); Bilirubin, Total 0.6 mg/dL (0.2-1.2); Calc. Creatinine Clearance 79 mL/min (70-130); Calcium 8.5 mg/dL (7.8-10.44); Carbon Dioxide 26 mmol/L (23-31); Chloride 106 mmol/L (98-107); Glucose 142 mg/dL (80-115); Potassium 4.7 mmol/L (3.5-5.1); Protein, Total 7.2 g/dL (5.8-8.1); Sodium 142 mmol/L (136-145)
[2022-02-03] MEDS: HYDROcodone/Acetaminophen 5/325 mg Tablet PO PRN ×3 (06:15→19:58)
[2022-02-03] MEDS: Senokot S 8.6-50 MG TAB PO PRN (06:26)
[2022-02-03] MEDS: Mometasone/Formoterol 200/5 60 PUFF INH SCH ×2 (07:03→20:15)
[2022-02-03 07:58] VITALS: BMI 42.5
[2022-02-03] MEDS: Dronedarone HCl 400 MG TAB PO SCH ×2 (09:41→17:19)
[2022-02-03] MEDS: Enoxaparin Sodium 40 MG/0.4 ML SYRINGE SC SCH (09:41)
[2022-02-03] MEDS: Magnesium Oxide 400 MG TAB PO SCH (09:44)
[2022-02-03] MEDS: Clopidogrel Bisulfate 75 MG TAB PO SCH (09:44)
[2022-02-03] MEDS: Digoxin 0.125 MG TAB PO SCH (09:45)
[2022-02-03] MEDS: Carvedilol 12.5 MG TAB PO SCH ×2 (09:45→17:19)
[2022-02-03] MEDS: Aspirin 81 mg Enteric Coated Tablet PO SCH (09:45)
[2022-02-03] MEDS: Lantus 1000 UNITS/10 ML VIAL SC SCH ×2 (09:46→20:03)
[2022-02-03] MEDS ORDERED: GUAIFENESIN SF SOLN 200 MG/10 ML UDCUP PO PRN (09:49)
[2022-02-03] MEDS ORDERED: Artificial Tear Sol 15 ML BOT EA EYE PRN (09:49)
[2022-02-03] MEDS ORDERED: Labetalol HCl 100 MG/20 ML VIAL SLOW IVP PRN (09:49)
[2022-02-03] MEDS ORDERED: Loratadine 10 MG TAB PO PRN (09:49)
[2022-02-03] MEDS ORDERED: Moisturizing Cream (Eucerin) 113 GM JAR TOP PRN (09:49)
[2022-02-03] MEDS ORDERED: Cepastat Lozenges 1 LOZ PO PRN (09:49)
[2022-02-03] MEDS: Ondansetron PF 4 MG/2 ML Vial IVP PRN (10:25)
[2022-02-03] MEDS: HumaLOG 300 UNITS/3 ML VIAL SC PRN ×2 (17:38→20:05)
[2022-02-03] MEDS: traZODone HCl 50 MG TAB PO SCH (19:59)
[2022-02-03] MEDS: Docusate 100 MG CAP PO SCH (19:59)
[2022-02-04 04:27] LABS: #Basophils 0.1 10x3/uL (0.0-0.2); #Eosinphils 0.5 10x3/uL (0.0-0.5); #Monocytes 1.2 10x3/uL (0.0-1.1); #Neutrophils 6.5 10x3/uL (1.5-8.4); %Eosinophils 4.8 % (0.0-6.0); %Lymphocytes 15.8 % (18.0-47.0); %Monocytes 11.7 % (0.0-10.0); %Neutrophils 66.3 % (40.0-75.0); Hemoglobin 7.7 g/dL (12.0-15.5); Mean Corpuscular HGB CONC 27.3 g/dL (32.0-36.0); Mean Corpuscular Hemoglobin 23.1 pg (27.0-33.0); Mean Corpuscular Volume 84.4 fl (81.6-98.3); Mean Platelet Volume 11.8 fl (7.4-10.4); Platelet Count 143 10x3/uL (150-450); RBC Distribution Width 21.6 % (11.5-14.5); Red Blood Cell (RBC) Count 3.34 10x6/uL (3.90-5.03); White Blood Cell (WBC) Count 9.9 10x3/uL (3.5-10.5)
[2022-02-04 05:02] LABS: ALT (SGPT) 10 U/L (8-55); AST (SGOT) 12 U/L (5-34); Albumin 3.3 g/dL (3.4-4.8); Alkaline Phosphatase 70 U/L (40-110); Anion Gap 15 mmol/L (10-20); BUN (Urea Nitrogen) 42 mg/dL (9.8-20.1); Bilirubin, Total 0.6 mg/dL (0.2-1.2); Calc. Creatinine Clearance 77 mL/min (70-130); Calcium 8.8 mg/dL (7.8-10.44); Carbon Dioxide 26 mmol/L (23-31); Chloride 106 mmol/L (98-107); Globulin 4.1 g/dL (2.4-3.5); Glucose 101 mg/dL (80-115); Magnesium 2.3 mg/dL (1.6-2.6); Phosphorus 4.2 mg/dL (2.3-4.7); Potassium 4.6 mmol/L (3.5-5.1); Protein, Total 7.4 g/dL (5.8-8.1); Sodium 142 mmol/L (136-145)
[2022-02-04 05:29] LABS: Giant Platelets SLIGHT; Large Platelets SLIGHT; Platelet Morphology Comment Appears Adequate
[2022-02-04 05:31] LABS: Anisocytosis SLIGHT = 6-15 cells (100X) (0-5/hpf); Elliptocytes SLIGHT = 2-5 cells (100X) (0-1/hpf); Hypochromia SLIGHT = 6-15 cells (100X) (0-5/hpf); Macrocytosis SLIGHT = 6-15 cells (100X) (0-5/hpf); Microcytosis SLIGHT = 6-15 cells (100X) (0-5/hpf); Polychromasia SLIGHT = 2-3 cells (100X) (0-2/hpf); Target Cells SLIGHT = 2-5 cells (100X) (0-1/hpf)
[2022-02-04] MEDS: Nitroglycerin 0.4 MG TAB (25 Tab Bottle) SL PRN ×3 (05:43→06:00)
[2022-02-04] MEDS: HYDROcodone/Acetaminophen 5/325 mg Tablet PO PRN ×4 (06:16→23:16)
[2022-02-04] MEDS: Mometasone/Formoterol 200/5 60 PUFF INH SCH ×2 (06:25→18:33)
[2022-02-04] MEDS ORDERED: Morphine 2 MG/ML VIAL SLOW IVP SCH (06:30)
[2022-02-04] MEDS ORDERED: Nitroglycerin 2% Ointment 1 INCH/1 GM Packet TOP SCH (06:30)
[2022-02-04 07:23] LABS: Troponin I 0.016 ng/mL (< 0.028)
[2022-02-04] MEDS ORDERED: Furosemide 20 MG TAB PO SCH (09:00)
[2022-02-04] MEDS: Carvedilol 12.5 MG TAB PO SCH ×2 (09:20→17:11)
[2022-02-04] MEDS: Polyethylene Glycol 3350 17 GM Packet PO SCH (09:20)
[2022-02-04] MEDS: Enoxaparin Sodium 40 MG/0.4 ML SYRINGE SC SCH (09:20)
[2022-02-04] MEDS: Digoxin 0.125 MG TAB PO SCH (09:20)
[2022-02-04] MEDS: Aspirin 81 mg Enteric Coated Tablet PO SCH (09:20)
[2022-02-04] MEDS: Valsartan 80 MG TAB PO SCH (09:20)
[2022-02-04] MEDS: Magnesium Oxide 400 MG TAB PO SCH (09:21)
[2022-02-04] MEDS: Clopidogrel Bisulfate 75 MG TAB PO SCH (09:21)
[2022-02-04] MEDS: Lantus 1000 UNITS/10 ML VIAL SC SCH ×2 (09:21→20:41)
[2022-02-04] MEDS: Docusate 100 MG CAP PO SCH ×2 (09:21→20:42)
[2022-02-04] MEDS: Dronedarone HCl 400 MG TAB PO SCH ×2 (09:21→17:11)
[2022-02-04] MEDS: Furosemide 40 MG TAB PO SCH (09:21)
[2022-02-04] MEDS: Baclofen 10 MG TAB PO PRN (09:28)
[2022-02-04 09:33] LABS: Troponin I 0.021 ng/mL (< 0.028)
[2022-02-04 12:44] LABS: Troponin I 0.024 ng/mL (< 0.028)
[2022-02-04] MEDS: Nitroglycerin 2% Ointment 1 INCH/1 GM Packet TOP SCH ×2 (13:48→21:22)
[2022-02-04] MEDS: HumaLOG 300 UNITS/3 ML VIAL SC PRN (20:43)
[2022-02-04] MEDS: traZODone HCl 50 MG TAB PO SCH (20:43)
[2022-02-04] MEDS: ALPRAZolam 0.25 MG TAB PO PRN (22:05)
[2022-02-05 04:29] LABS: #Basophils 0.1 10x3/uL (0.0-0.2); #Eosinphils 0.4 10x3/uL (0.0-0.5); #Monocytes 1.1 10x3/uL (0.0-1.1); %Basophils 0.8 % (0.0-2.0); %Eosinophils 3.8 % (0.0-6.0); %Lymphocytes 13.6 % (18.0-47.0); %Monocytes 10.9 % (0.0-10.0); %Neutrophils 70.4 % (40.0-75.0); Hemoglobin 8.5 g/dL (12.0-15.5); Mean Corpuscular HGB CONC 28.9 g/dL (32.0-36.0); Mean Corpuscular Volume 83.1 fl (81.6-98.3); Mean Platelet Volume 11.1 fl (7.4-10.4); Platelet Count 141 10x3/uL (150-450); RBC Distribution Width 21.4 % (11.5-14.5); Red Blood Cell (RBC) Count 3.54 10x6/uL (3.90-5.03); White Blood Cell (WBC) Count 9.9 10x3/uL (3.5-10.5)
[2022-02-05 05:22] LABS: Platelet Morphology Comment Appears Decreased
[2022-02-05 05:23] LABS: Anisocytosis SLIGHT = 6-15 cells (100X) (0-5/hpf); Elliptocytes SLIGHT = 2-5 cells (100X) (0-1/hpf); Hypochromia SLIGHT = 6-15 cells (100X) (0-5/hpf); Macrocytosis SLIGHT = 6-15 cells (100X) (0-5/hpf); Microcytosis SLIGHT = 6-15 cells (100X) (0-5/hpf); Polychromasia SLIGHT = 2-3 cells (100X) (0-2/hpf); Stomatocytes SLIGHT = 2-5 cells (100X) (0-1/hpf)
[2022-02-05] MEDS: HYDROcodone/Acetaminophen 5/325 mg Tablet PO PRN ×4 (05:23→22:58)
[2022-02-05] MEDS: Nitroglycerin 2% Ointment 1 INCH/1 GM Packet TOP SCH ×3 (05:24→21:38)
[2022-02-05] MEDS: Mometasone/Formoterol 200/5 60 PUFF INH SCH ×2 (07:37→20:15)
[2022-02-05] MEDS: Enoxaparin Sodium 40 MG/0.4 ML SYRINGE SC SCH (11:11)
[2022-02-05] MEDS: Magnesium Oxide 400 MG TAB PO SCH (11:11)
[2022-02-05] MEDS: Carvedilol 12.5 MG TAB PO SCH ×2 (11:12→16:19)
[2022-02-05] MEDS: Polyethylene Glycol 3350 17 GM Packet PO SCH (11:12)
[2022-02-05] MEDS: Furosemide 40 MG TAB PO SCH (11:12)
[2022-02-05] MEDS: Clopidogrel Bisulfate 75 MG TAB PO SCH (11:12)
[2022-02-05] MEDS: Aspirin 81 mg Enteric Coated Tablet PO SCH (11:12)
[2022-02-05] MEDS: Dronedarone HCl 400 MG TAB PO SCH ×2 (11:13→16:18)
[2022-02-05] MEDS: Digoxin 0.125 MG TAB PO SCH (11:13)
[2022-02-05] MEDS: Fluticasone Propionate Nasal Spray 16 gm Bottle NASAL SCH (11:14)
[2022-02-05] MEDS: Docusate 100 MG CAP PO SCH ×2 (11:14→20:53)
[2022-02-05] MEDS: Lantus 1000 UNITS/10 ML VIAL SC SCH ×2 (11:15→20:53)
[2022-02-05] MEDS: Valsartan 80 MG TAB PO SCH (11:27)
[2022-02-05 15:20] LABS: SARS-CoV-2 PCR by NAA Not Detected (NotDetected)
[2022-02-05] MEDS: traZODone HCl 50 MG TAB PO SCH (20:53)
[2022-02-06 04:59] LABS: #Basophils 0.1 10x3/uL (0.0-0.2); #Eosinphils 0.2 10x3/uL (0.0-0.5); #Monocytes 1.1 10x3/uL (0.0-1.1); #Neutrophils 8.2 10x3/uL (1.5-8.4); %Basophils 0.7 % (0.0-2.0); %Eosinophils 2.3 % (0.0-6.0); %Lymphocytes 9.9 % (18.0-47.0); %Monocytes 10.1 % (0.0-10.0); %Neutrophils 76.4 % (40.0-75.0); Hemoglobin 8.8 g/dL (12.0-15.5); Mean Corpuscular HGB CONC 28.9 g/dL (32.0-36.0); Mean Corpuscular Volume 83.1 fl (81.6-98.3); Mean Platelet Volume 11.6 fl (7.4-10.4); Platelet Count 153 10x3/uL (150-450); RBC Distribution Width 21.8 % (11.5-14.5); Red Blood Cell (RBC) Count 3.67 10x6/uL (3.90-5.03); White Blood Cell (WBC) Count 10.7 10x3/uL (3.5-10.5)
[2022-02-06 05:13] LABS: Anion Gap 15 mmol/L (10-20); BUN (Urea Nitrogen) 36 mg/dL (9.8-20.1); Calc. Creatinine Clearance 69 mL/min (70-130); Calcium 8.7 mg/dL (7.8-10.44); Carbon Dioxide 24 mmol/L (23-31); Chloride 106 mmol/L (98-107); Glucose 212 mg/dL (80-115); Potassium 4.6 mmol/L (3.5-5.1); Sodium 140 mmol/L (136-145)
[2022-02-06 05:33] LABS: Platelet Morphology Comment Appears Adequate
[2022-02-06 05:34] LABS: Anisocytosis SLIGHT = 6-15 cells (100X) (0-5/hpf); Elliptocytes SLIGHT = 2-5 cells (100X) (0-1/hpf); Hypochromia SLIGHT = 6-15 cells (100X) (0-5/hpf); Macrocytosis SLIGHT = 6-15 cells (100X) (0-5/hpf); Microcytosis SLIGHT = 6-15 cells (100X) (0-5/hpf); Polychromasia SLIGHT = 2-3 cells (100X) (0-2/hpf); Target Cells SLIGHT = 2-5 cells (100X) (0-1/hpf)
[2022-02-06] MEDS: Nitroglycerin 2% Ointment 1 INCH/1 GM Packet TOP SCH (06:23)
[2022-02-06] MEDS: Mometasone/Formoterol 200/5 60 PUFF INH SCH (07:12)
[2022-02-06] MEDS: Magnesium Oxide 400 MG TAB PO SCH (09:43)
[2022-02-06] MEDS: Enoxaparin Sodium 40 MG/0.4 ML SYRINGE SC SCH (09:43)
[2022-02-06] MEDS: Furosemide 40 MG TAB PO SCH (09:43)
[2022-02-06] MEDS: Digoxin 0.125 MG TAB PO SCH (09:43)
[2022-02-06] MEDS: Carvedilol 12.5 MG TAB PO SCH (09:43)
[2022-02-06] MEDS: Valsartan 80 MG TAB PO SCH (09:43)
[2022-02-06] MEDS: Aspirin 81 mg Enteric Coated Tablet PO SCH (09:43)
[2022-02-06] MEDS: Clopidogrel Bisulfate 75 MG TAB PO SCH (09:44)
[2022-02-06] MEDS: Docusate 100 MG CAP PO SCH (09:44)
[2022-02-06] MEDS: Fluticasone Propionate Nasal Spray 16 gm Bottle NASAL SCH (09:44)
[2022-02-06] MEDS: Dronedarone HCl 400 MG TAB PO SCH (09:44)
[2022-02-06] MEDS: Lantus 1000 UNITS/10 ML VIAL SC SCH (09:45)
[2022-02-06] MEDS: Polyethylene Glycol 3350 17 GM Packet PO SCH (09:46)
[2022-02-06] MEDS: HYDROcodone/Acetaminophen 5/325 mg Tablet PO PRN (10:49)
[2022-02-06] MEDS: Ondansetron PF 4 MG/2 ML Vial IVP PRN (10:50)
[2022-02-06 12:08] VITALS: BP 135/71; TEMP 97.3
== END 2022-02-06 13:30 | disposition home health service (06) | DRG 280 ==
LOC: CSHERS 17:21 → CSHTELE 21:45
PROVIDERS: ADMIT Student in an Organized Health Care Education/Training Program; ATTEND Internal Medicine
PROC: 30233N1 Transfusion of Nonautologous Red Blood Cells into Peripheral Vein, Percutaneous Approach (ICD-10-PCS; principal; 2022-01-28)
DX: I13.0 Hypertensive heart and chronic kidney disease with heart failure and stage 1 through stage 4 chronic kidney disease, or unspecified chronic kidney disease (principal); I50.43 Acute on chronic combined systolic (congestive) and diastolic (congestive) heart failure; I21.A1 Myocardial infarction type 2; N17.9 Acute kidney failure, unspecified; E66.2 Morbid (severe) obesity with alveolar hypoventilation; Z68.41 Body mass index [BMI] 40.0-44.9, adult; I48.92 Unspecified atrial flutter; Z20.822 Contact with and (suspected) exposure to COVID-19; F41.9 Anxiety disorder, unspecified; F32.A Depression, unspecified; I25.118 Atherosclerotic heart disease of native coronary artery with other forms of angina pectoris; N18.32 Chronic kidney disease, stage 3b; G89.29 Other chronic pain; D50.9 Iron deficiency anemia, unspecified; E11.22 Type 2 diabetes mellitus with diabetic chronic kidney disease; E78.2 Mixed hyperlipidemia; I25.5 Ischemic cardiomyopathy; J44.9 Chronic obstructive pulmonary disease, unspecified; E11.42 Type 2 diabetes mellitus with diabetic polyneuropathy; E11.51 Type 2 diabetes mellitus with diabetic peripheral angiopathy without gangrene; M54.40 Lumbago with sciatica, unspecified side; D63.1 Anemia in chronic kidney disease; I44.0 Atrioventricular block, first degree; I42.0 Dilated cardiomyopathy; I95.1 Orthostatic hypotension; E87.5 Hyperkalemia; E11.649 Type 2 diabetes mellitus with hypoglycemia without coma; R53.81 Other malaise; I87.8 Other specified disorders of veins; E11.319 Type 2 diabetes mellitus with unspecified diabetic retinopathy without macular edema; Z95.810 Presence of automatic (implantable) cardiac defibrillator; Z88.1 Allergy status to other antibiotic agents; Z88.8 Allergy status to other drugs, medicaments and biological substances; Z91.048 Other nonmedicinal substance allergy status; Z91.040 Latex allergy status; Z79.82 Long term (current) use of aspirin; Z79.899 Other long term (current) drug therapy; Z79.4 Long term (current) use of insulin; Z95.1 Presence of aortocoronary bypass graft; Z95.5 Presence of coronary angioplasty implant and graft; Z90.710 Acquired absence of both cervix and uterus; Z90.49 Acquired absence of other specified parts of digestive tract; Z89.431 Acquired absence of right foot; Z90.722 Acquired absence of ovaries, bilateral; Z87.891 Personal history of nicotine dependence; Z82.49 Family history of ischemic heart disease and other diseases of the circulatory system
CPT/HCPCS: 36415; 36416; 36430; 70450; 71045; 78451; 80048; 80053; 82274; 82550; 82553; 82607; 82746; 83036; 83540; 83550; 83605; 83690; 83735; 83880; 84100; 84443; 84484; 85025; 85379; 86850; 86900; 86901; 87040; 93005; 93010; 93970; 94640; 94664; 94760; 96374; 96375; A9540; J1160; J1610; J1650; J1815; J1940; J2270; J2405; J2550; J7030; J7620; P9016; Q0162; U0003; U0005

== ENCOUNTER 2022-02-19 10:34 | Outpatient (CLI) | payer MEDICARE | END 2022-02-19 10:35 | disposition home or self-care (01) | LOC: CSHWCC 10:34 | PROVIDERS: ATTEND Nurse Practitioner Family | DX: R60.0 Localized edema (principal) | CPT/HCPCS: 97139; G0463; 99213 ==